=== PATIENT | female | born 1940 | race Caucasian/White ===

== ENCOUNTER → 2018-04-28 13:41 | Outpatient (CLI) | payer MEDICARE, MEDICAID, SELFPAY ==
--- NOTE | 2018-04-28 13:53 | XR_ITS ---
XR shoulder RT min 2V HISTORY: ITS.REASON: RT SHOULDER PAIN ORDERING PHYSICIAN: Alise Salazar PATIENT AGE: 77 years Comparison: None FINDINGS: There are mild osteoarthritic changes of the glenohumeral joint and acromioclavicular joint. No fracture or dislocation. No significant subacromial stenosis. There is a small bone island in the glenoid. 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
--- NOTE | 2018-04-28 13:53 | XR_ITS ---
XR hip LT 2-3V w/pelvis HISTORY: ITS.REASON: LEFT HIP PAIN ORDERING PHYSICIAN: Alise Salazar PATIENT AGE: 77 years COMPARISON: None FINDINGS: There are moderate bilateral osteoarthritic changes of the hips slightly worse on the left. No fracture or dislocation. No lytic or blastic change. 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
--- NOTE | 2018-04-28 13:53 | XR_ITS ---
XR shoulder LT min 2V HISTORY: ITS.REASON: LEFT SHOULDER PAIN ORDERING PHYSICIAN: Alise Salazar PATIENT AGE: 77 years Comparison: 05/23/2017 FINDINGS: There are mild osteoarthritic changes of the glenohumeral joint. No fracture or dislocation. No lytic or blastic change. No significant subacromial stenosis. IMPRESSION: Mild osteoarthritis of the glenohumeral joint is slightly worse when compared to 05/23/2017
--- NOTE | 2018-04-28 13:53 | XR_ITS ---
XR knee RT 3V HISTORY: ITS.REASON: SWELLING OF RT KNEE JOINT ORDERING PHYSICIAN: Alise Salazar PATIENT AGE: 77 years COMPARISON: None FINDINGS: Tricompartmental osteoarthritic changes are present mild/moderate in nature with decrease in the joint space and osteophyte formation. There is a calcific density along the central aspect of the lateral compartment and may be due to a loose intra-articular body or a spur from the femoral condyle. There is increased density in the suprapatellar region consistent with a knee joint effusion. No fracture or dislocation lytic or blastic change evident. IMPRESSION: [id number] osteoarthritis with knee joint effusion and possible loose body along the lateral compartment
== END ==
PROVIDERS: PCP Nurse Practitioner Family; Visit Provider Nurse Practitioner Family
DX: M25.552 Pain in left hip (principal); M25.511 Pain in right shoulder; M25.512 Pain in left shoulder; M25.461 Effusion, right knee
CPT/HCPCS: 73030; 73502; 73562

== ENCOUNTER → 2018-05-08 14:34 | Outpatient (CLI) | payer MEDICARE, MEDICAID, SELFPAY ==
--- NOTE | 2018-05-08 14:46 | MR_ITS ---
MR knee RT wo con Ordering Physician: Alise Salazar Patient Age: 77 years: Female HISTORY: ITS.REASON: LOOSE BODY IN KNEE Right knee pain. Loose body knee. Fell 2 weeks ago on knee with swelling at and throughout knee. Knee pain with bending and extending. TECHNIQUE: Multiplanar multisequence imaging 1.5T MR. COMPARISON :Plain films of the right knee 04/28/2018 FINDINGS Large joint effusion with tricompartmental Arthritic changes, seen throughout this knee. .. Moderate Tricompartmental marginal osteophytes, most evident about the lateral compartment. Chondral thinning and scuffing throughout-tricompartmental.. Also note edema throughout the soft tissues surrounding the knee. No fracture. No significant bone contusion. . LATERAL COMPARTMENT: Marginal osteophytes most evident laterally at the femoral condyle. . Mild joint space narrowing.Irregular chondral signal likely reflects areas of chondral thinning,, scuffing with what appear to be some chondral fissures and irregularity on coronal view There is a focal 5 mm x 8 mm AP x 2 mm height 'wart like' osseous protuberance from the posterior weightbearing aspect of the lateral femoral condyle. It appears to be osseous protuberance from the bone rather than a loose body..-This feature evident on recent plain film as well . The lateral meniscus is surprisingly intact. There may be some mild fraying at the free margin the posterior horn just beneath the small osseous protuberance described above. Minimal hypertrophic ridging extending laterally from from the region of the tibial spines noted at anterior aspect of the lateral tibial plateau. This feature begins near the tibial spine region on coronal image 14 & & and likely continues lateral as it subtle ridge along anterior tibial plateau, just beneath the anterior meniscus (sagittal image 7). Initially question if this could be a small thin meniscal fragment just beneath the anterior horn on the sagittal images.-Although this is a possibility but I tend to favor it is is related to the mild hypertrophic ridging feature and low signal from cortex... MEDIAL COMPARTMENT There is chondral scuffing and thinning at the medial femoral condyle.. Slight narrowing of medial compartment joint space Developing medial marginal osteophytes,. There is medial displacement of the body of the medial meniscus accompanied these marginal osteophytes medially. I suspect there is some fraying at the free margin of the anterior horn and body of medial meniscus. Overall the medial meniscus appears to be of some decreased volume which may reflect some degenerative changes. PATELLOFEMORAL JOINT. Subtle lateral tilt of patella. Appears to be chondral thinning and chondral loss along the posterior aspect of patella Large joint effusion is most evident through this suprapatellar region. Patella itself is intact. The patella tendon appears to be intact upper normal signal near its patellar insertion. Quadriceps tendon intact. Mild fluid signal overlying patellar tendon. Ligaments: . ACL thin but I believe intact. PCL generous thickness upper normal signal superiorly but I believe intact MCL and lateral collateral ligament intact. IMPRESSION: ...... 1. Large joint effusion. No fracture nor bone contusion Also generous Edema also seen in soft tissues surrounding knee joint 2. Tricompartmental arthritic changes at knee. Moderate Tricompartmental osteophytes. Chondral thinning, scuffing and irregularities all compartments ... Lateral compartment demonstrates chondral thinning scuffing and irregularities most evident at the lateral femoral condyle . Note focal wartlike osseous protuberance at extending from the the lateral femoral condyle into the joint space... ... Medial
== END ==
PROVIDERS: Family Provider Nurse Practitioner Family; PCP Nurse Practitioner Family; Visit Provider Nurse Practitioner Family
DX: M23.41 Loose body in knee, right knee (principal)
CPT/HCPCS: 73721

== ENCOUNTER → 2021-02-10 13:56 | Outpatient (CLI) | payer MEDICARE, SELFPAY ==
[2021-02-10 14:17] LABS: Chloride 94 mmol/L (98-107); Potassium 3.7 mmoL/L (3.5-5.1); Sodium 132 mmol/L (136-145)
[2021-02-10 14:19] LABS: Alanine Aminotransferase 11 U/L (12-78); Aspartate Amino Transferase 20 U/L (14-36); Blood Urea Nitrogen 12 mg/dl (7-17); Estimated Glomerular Filt Rate 97 ml/min (>60); GFR (African American) 117 ML/MIN (>60)
[2021-02-10 14:20] LABS: Albumin Level 4.3 g/dl (3.5-5.0); Albumin/Globulin Ratio 1.6 (1.1-1.8); Alkaline Phosphatase 93 U/L (38-126); Anion Gap 12.7 mEq/L (5-15); Bilirubin,Total 0.6 mg/dl (0.2-1.3); Calcium 9.2 mg/dl (8.4-10.2); Carbon Dioxide 29 mmol/L (22.0-30.0); Chol/HDL Ratio 2.8 (1-3.5); Cholesterol 213 mg/dl (140-200); Globulin 2.7 g/dL (1.3-3.2); Glucose 95 mg/dl (74-100); HDL Cholesterol 75 mg/dl (40-60); Triglycerides 78 mg/dl (30-150); VLDL Cholesterol 16 mg/dL (0-40)
[2021-02-10 14:32] LABS: Basophils % 0.2 % (0.1-2.0); Direct LDL Cholesterol 114.62 mg/dL (100-129); Eosinophils % 0.3 % (0.1-12.0); Hematocrit 41.8 % (37.0-47.0); Hemoglobin 13.6 g/dL (12.2-16.2); Lymphocytes % 8.5 % (10-50); Mean Corpuscular HGB Conc 32.4 g/dL (31.8-35.4); Mean Corpuscular Hemoglobin 27.4 pg (27.0-31.2); Mean Corpuscular Volume 84.5 fl (81-99); Mean Platelet Volume 8.2 fl (7.4-10.4); Monocytes # 0.4 K/mm3 (0.1-1.0); Monocytes % 3.1 % (1.7-9.3); Neutrophils # 10.7 K/mm3 (1.8-7.8); Neutrophils % 87.9 % (37.0-80.0); Platelet Count 258 K/mm3 (142-424); Red Blood Count 4.95 M/mm3 (4.20-5.40); Red Cell Distribution Width 17.9 % (11.5-17.5); White Blood Count 12.2 K/mm3 (4.8-10.8)
[2021-02-10 14:51] LABS: Thyroid Stimulating Hormone 2.25 uIU/mL (0.465-4.68)
[2021-02-10 15:01] LABS: MANUAL DIFFERENTIAL MANUAL DIFFERENTIAL (MANUAL DIFF)
[2021-02-10 16:23] LABS: Erythrocyte Sedimentation Rate 6 mm/hr (0-30)
[2021-02-10 16:29] LABS: Acanthocytes 1+; Eosinophils % 1 % (0-3); Lymphocytes % 6 % (10-50); Monocytes % 4 % (2-9); Neutrophils % 87 % (42-76); Platelet Estimate Normal; Total Cells Counted 100
== END ==
PROVIDERS: Visit Provider Family Medicine
DX: E03.9 Hypothyroidism, unspecified (principal); I21.9 Acute myocardial infarction, unspecified; M06.9 Rheumatoid arthritis, unspecified; F03.90 Unspecified dementia, unspecified severity, without behavioral disturbance, psychotic disturbance, mood disturbance, and anxiety
CPT/HCPCS: 80053; 80061; 84436; 84443; 85007; 85025; 85651

== ENCOUNTER → 2021-07-28 09:56 | Outpatient (CLI) | payer MEDICARE, SELFPAY ==
--- NOTE | 2021-07-28 10:02 | XR_ITS ---
PROCEDURE: XR HIP LT 2-3V W/PELVIS CLINICAL INDICATION: pain COMPARISON: CR HIPCMLT XR hip LT 2-3V w/pelvis from 04/28/2018 FINDINGS: There are moderate to severe osteoarthritic changes of the left hip with loss of joint space superiorly and osteophyte formation with osteosclerosis. The osteoarthritis has progressed compared to the previous exam. IMPRESSION: Moderate to severe osteoarthritic changes of the left hip which has progressed since 04/28/2018 Dictated by: Jose Villalobos MD 07/28/2021 17:08 Jose Villalobos MD in [place] 07/28/2021 17:08
--- NOTE | 2021-07-28 10:03 | XR_ITS ---
PROCEDURE: XR HIP RT 2-3V W/PELVIS CLINICAL INDICATION: HIP PAIN COMPARISON: CR HIPCMLT XR hip LT 2-3V w/pelvis from 04/28/2018 CR XR HIP LT 2-3V W/PELVIS from 07/28/2021 FINDINGS: No obvious fracture or dislocation. No lytic or blastic changes. There are moderate osteoarthritic changes of the right hip with decrease of joint space medially and osteosclerosis of the acetabulum. There is a ill-defined lucency involving the medial aspect of the acetabulum possibly due to a Mach line created by acetabular osteophyte formation. An old fracture could have a similar appearance. IMPRESSION: Moderate osteoarthritic changes of the right hip. Prominent lucency of the medial wall the acetabulum possibly due to Mach line from acetabular osteophyte versus an old fracture. Dictated by: Jose Villalobos MD 07/28/2021 17:07 Jose Villalobos MD in [facility] 07/28/2021 17:07
== END ==
LOC: RAD 09:59
PROVIDERS: PCP Family Medicine; Visit Provider Family Medicine
DX: M25.552 Pain in left hip (principal); M25.551 Pain in right hip; Z76.0 Encounter for issue of repeat prescription
CPT/HCPCS: 73502

== ENCOUNTER 2021-09-16 15:28 | Emergency (ER) | payer MEDICARE, SELFPAY ==
[2021-09-16 16:06] VITALS: BP 174/75; PULSE 72; RESP 18; TEMP 37; O2SAT 98; BMI 21.9
[2021-09-16 16:13] LABS: UTC Strep Screen (Rapid) Negative (Negative)
--- NOTE | 2021-09-16 17:06 | HMH.EDUTC ---
[facility] [place] Disposition Clinical Impression: Gastroenteritis, Viral syndrome Disposition: Home, Self-Care Condition on Discharge: Good Instructions: Viral Gastroenteritis, DI for Viral Gastroenteritis -- Adult Additional Instructions: Drink plenty of fluids. Take tylenol for pain or fever. Take the medications as directed. Follow up with your regular doctor. GO TO THE ER FOR ANY WORSENING SYMPTOMS Quarantine until you know the results of your covid-19 test. If it is positive, the health department should call you and give you further instructions about your length of Quarantine and other things. Notify your school or workplace of your results and follow their instructions regarding return to work/school. We gave you the supplies and the order to bring a stool sample back and have it analyzed. If your diarrhea continues another 24 hours, please return a sample. Prescriptions: Ondansetron [Zofran 4mg ODT] 4 mg PO Q8HP PRN #12 tab PRN Reason: Nausea Transmission Status: Received by [facility] [id number] Referrals: Cody Portillo MD [Primary Care Provider] - Time of Disposition: 17:28 Medical Decision Making - Medical Records Medical records reviewed: No: I reviewed the patient's medical records. - Alex Inquiry Pt receiving controlled substance: No Vital Signs: 09/16/21 16:06 09/16/21 17:36 Temperature 98.6 F 98.6 F Temperature Source Oral Pulse Rate 72 Pulse Rate [Left] 72 Respiratory Rate 18 18 Blood Pressure 174/75 H Blood Pressure [Right Arm] 174/75 H Blood Pressure Mean [Right Arm] 108 02 Sat by Pulse Oximetry 98 - Lab Data Lab Results 09/16/21 16:05: Strep Scn Rapid Clinic Negative Orders (Tests/Meds): ORDERS Category Date Time Status Covid-19 Nasal PCR ([facility]) Routine Lab 09/16/21 17:34 Received Strep Screen Confirmation Routine Micro 09/16/21 16:05 Received Medical Decision Narrative: She refused a chest x-ray and lab work. She states that she thinks she just has a stomach virus and she doesn't need all of that. [facility] [place] HPI - General Stated complaint: diarrhea Time Seen by Provider: 09/16/21 16:40 Mode of Arrival: Ambulatory Source of Information: Patient Limitations: No Limitations Description of Symptoms (Recalled from Triage Doc. by RN): pt c/o diarrhea and stomach cramps x3 days. HEENT Symptoms (Recalled from RN notes): No Resp Symptoms (Recalled from RN notes): No Skin Symptoms (Recalled from RN notes): No MS Symptoms (Recalled from RN notes): No Functional Status (Recalled from RN notes): na - History of Present Illness Provider Complaint: She c/o 3 days of diarrhea and nausea. She denies vomiting. She denies actual abdominal pain and fever. She has also had a cough and chest congestion. She has not been vaccinated against covid-19. - Related Data Previous Rx's Medication Instructions Recorded levetiracetam 750 mg tablet 750 mg PO BID #180 tab 03/16/21 levothyroxine 50 mcg tablet 50 mcg PO DAILY #90 tab 03/16/21 lisinopril 5 mg tablet 5 mg PO DAILY #90 tab 03/16/21 sertraline 25 mg tablet 25 mg PO DAILY #90 tab 03/16/21 albuterol sulfate 90 mcg/actuation 1 inh INHALATION QID PRN #18 g 06/02/21 aerosol inhaler aspirin 81 mg tablet,delayed 81 mg PO DAILY #90 tab 07/23/21 release metoprolol succinate 50 mg 50 mg PO DAILY #90 tab 07/23/21 tablet,extended release 24 hr hydrocodone 7.5 mg-acetaminophen 1 tab PO DAILY PRN #30 tab 09/03/21 325 mg tablet methylprednisolone 4 mg tablets in See Rx Instructions PO PER PKG DIR 09/08/21 a dose pack #21 tab prednisone 10 mg tablet 10 mg PO DAILY #30 tab 09/11/21 Ondansetron [Zofran 4mg ODT] 4 mg PO Q8HP PRN #12 tab 09/16/21 Allergies Allergy/AdvReac Type Severity Reaction Status Date / Time No Known Allergies Allergy Verified 09/03/21 09:48 - Worker's Comp Is this a Worker's Comp case?: No H History - Hepatitis A Screen Drug use history?: No High risk se
--- NOTE | 2021-09-16 17:27 | PC.NURSE ---
pt refused chest xray.
[2021-09-16 17:36] VITALS: BP 174/75; PULSE 72; RESP 18; TEMP 37
== END 2021-09-16 17:46 | disposition home or self-care (01) ==
PROVIDERS: Emergency Provider Nurse Practitioner Family; PCP Family Medicine
DX: K52.9 Noninfective gastroenteritis and colitis, unspecified (principal); I50.9 Heart failure, unspecified; Z20.822 Contact with and (suspected) exposure to COVID-19
CPT/HCPCS: G0463; 87880; 99202; C9803; U0003; U0005

== ENCOUNTER 2022-04-27 20:03 | Inpatient (IN) | payer MEDICARE, SELFPAY ==
[2022-04-27] VITALS (17 sets, daily range): BP systolic 74–149; BP diastolic 41–68; PULSE 61–95; RESP 16–24; TEMP 39.3; O2SAT 90–97; BMI 21.9
--- NOTE | 2022-04-27 19:47 | ECG_ITS ---
APPROVED REPORT Exam: Resting ECG HR:84 bpm ECG Measurements Heart Rate 84 AXES OR 156 P 72 QRSd 103 QRS 74 QT 403 T 69 QTc 443 Conclusion SINUS RHYTHM WITH OCCASIONAL SUPRAVENTRICULAR PREMATURE COMPLEXES Biatrial abnormality Old inferior Q waves noted Nonspecific ST/T wave changes-ischemia versus electrolyte imbalance ABNORMAL ECG INTERPRETATION BASED ON A DEFAULT AGE OF 42 YEARS UNCONFIRMED REPORT Electronically signed by : José Corrigan MD 04/29/2022 17:45:09
[2022-04-27 20:20] LABS: ABG Base Excess 1.5 mmol/L (-2.4-2.3); ABG HCO3 24.8 mmhg (22.0-26.0); ABG Oxygen Saturation 100 % (90-100); ABG PCO2 33.3 mmhg (35.0-45.0); ABG PH 7.49 mmol/L (7.35-7.45); ABG PO2 267.1 mmhg (80-100); ABG TCO2 25.8 mmhg (23-27); Allen's Test Acceptable; Oxygen 100 %; Source Right Radial
--- NOTE | 2022-04-27 20:25 | PC.NURSE ---
@ 2024 Dr. Dyson requested pt be placed on 2LPM NC from [facility]
--- NOTE | 2022-04-27 20:25 | XR_ITS ---
PROCEDURE INFORMATION: Exam: XR Chest Exam date and time: 04/27/2022 8:35 PM Age: 81 years old Clinical indication: Cough; Additional info: Cough ) TECHNIQUE: Imaging protocol: Radiologic exam of the chest. Views: 1 view. COMPARISON: CR SHOULDCMLT XR shoulder LT min 2V 04/28/2018 1:58 PM FINDINGS: Lungs: Pulmonary hyperinflation. Wedge-shaped opacity within peripheral mid right lung. Pleural spaces: No pneumothorax. Heart/Mediastinum: Prominent cardiac silhouette. Vasculature: Aortic knob calcifications. Bones/joints: Degenerative changes of the shoulders. IMPRESSION: Wedge-shaped opacity within peripheral mid right lung which would be compatible with pneumonia however follow-up to radiographic clearance is recommended.
--- NOTE | 2022-04-27 20:25 | PC.NURSE ---
Dr. Dyson aware that pt meets severe sepsis with organ dysfunction with temp, HR, and SBP < 90 with documented pneumonia on cxr.
--- NOTE | 2022-04-27 20:30 | HMH.EDWEAK ---
ED Disposition Clinical Impression: COVID-19, SIRS (systemic inflammatory response syndrome), Hypokalemia, Seizure disorder CAP (community acquired pneumonia) Qualifiers: Laterality: right Lung location: unspecified part of lung Qualified Code(s): J18.9 - Pneumonia, unspecified organism Hypothyroidism Qualifiers: Hypothyroidism type: acquired Qualified Code(s): E03.9 - Hypothyroidism, unspecified Disposition: Admitted As Inpatient Condition on Discharge: Fair Referrals: Provider,Referral, [Referring] - - Critical Care Critical Care Time: No Attestation: On 04/27/22, the high probability of a clinically significant, sudden or life threatening deterioration of the following system(s) required my full and direct attention, intervention and personal management. The time I documented below is in addition to time spent performing reported procedures but includes the following listed in this critical care notation. Medical Decision Making - Medical Records Medical records reviewed: Yes: I reviewed the patient's medical records. - Alex Inquiry Pt receiving controlled substance: No Vital Signs: 04/27/22 19:56 Temperature 102.7 F H Temperature Source Rectal Pulse Rate [Right] 95 H Respiratory Rate 16 Blood Pressure [Right Arm] 113/65 Blood Pressure Mean [Right Arm] 81 02 Sat by Pulse Oximetry 95 Oxygen Delivery Method Non-Rebreather Oxygen Flow Rate (LPM) 10 - Lab Data Lab results reviewed: Yes: I reviewed the patient's lab results. Lab Results 04/27/22 20:07: Urine Color Yellow, Urine Appearance Clear, Urine pH 7.0, Ur Specific [place] 1.015, Urine Protein Negative, Urine Glucose (UA) Negative, Urine Ketones Negative, Urine Blood Negative, Urine Nitrate Negative, Urine Bilirubin Negative, Urine Urobilinogen 0.2, Ur Leukocyte Esterase Negative, Urine Bacteria 2+ 04/27/22 20:07: WBC 8.6, RBC 5.46 H, Hgb 15.2, Hct 49.8 H, MCV 91.2, MCH 27.9, MCHC 30.6 L, RDW 15.2, Plt Count 155, MPV 8.9, Neut % (Auto) 88.1 H, Lymph % (Auto) 8.4 L, Bowie % (Auto) 2.8, Eos % (Auto) 0.2, Baso % (Auto) 0.5, Neut # (Auto) 7.6, Lymph # (Auto) 0.7, Bowie # (Auto) 0.2, Eos # (Auto) 0.0, Baso # (Auto) 0.0, ESR 2 04/27/22 20:07: Sodium 129 L, Potassium 2.7 L*, Chloride 93 L, Carbon Dioxide 28, Anion Gap 10.7, BUN 14, Creatinine 0.90, Estimated Creat Clear 39, Estimated GFR 60, Est GFR ( Amer) 73, Glucose 117 H, Calcium 8.4, Total Bilirubin 1.0, AST 27, ALT 23, Alkaline Phosphatase 85, Troponin I 0.02, C-Reactive Protein 20.1 H, Total Protein 6.4, Albumin 3.8, Globulin 2.6, Albumin/Globulin Ratio 1.5, Amylase 50, Lipase 30, Procalcitonin 1.15 04/27/22 20:07: Lactate 1.8 04/27/22 20:18: Specimen Source Right radial, O2 % 100, ABG pH 7.49 H, ABG pCO2 33.3 L, ABG pO2 267.1 H, ABG HCO3 24.8, ABG Total CO2 25.8, ABG O2 Saturation 100, ABG Base Excess 1.5, Jose Test Acceptable 04/27/22 20:34: SARS-CoV-2 (PCR) Detected A, Influenza A Untype (PCR) Not detected, Influenza Type B (PCR) Not detected Result diagrams: 04/27/22 20:07 04/27/22 20:07 Orders (Tests/Meds): ED MEDICATIONS Generic Name Dose Route Start Last Admin Trade Name Freq PRN Reason Stop Dose Admin Sodium Chloride 1,000 mls @ 999 mls/hr 04/27/22 20:30 04/27/22 20:21 Sod Chlor 0.9% 1000ml Bag IV 04/27/22 21:30 999 mls/hr .Q1H1M DARINEL Administration Discontinued Medications Generic Name Dose Route Start Last Admin Trade Name Freq PRN Reason Stop Dose Admin Acetaminophen 1,000 mg 04/27/22 20:35 04/27/22 20:37 Acetaminophen 500mg Tab PO 04/27/22 20:36 1,000 mg ONCE ONE Administration ORDERS Category Date Time Status Complete Blood Count Auto Diff Stat Lab 04/27/22 20:07 Results Erythrocyte Sedimentation Rate Stat Lab 04/27/22 20:07 Results Troponin I Q3H Lab 04/27/22 23:30 Ordered Troponin I Q3H Lab 04/28/22 02:30 Ordered Blood Culture Stat Micro 04/27/22 20:07 Received Urine Culture Stat Micro 04/27/22 20:07 Received Arterial
[2022-04-27 20:35] LABS: Microscopic, Urine URINE MICROSCOPIC (MICROSCOPIC)
[2022-04-27 20:41] LABS: Basophils % 0.5 % (0.1-2.0); Eosinophils % 0.2 % (0.1-12.0); Hematocrit 49.8 % (37.0-47.0); Hemoglobin 15.2 g/dL (12.2-16.2); Lymphocytes # 0.7 K/mm3 (0.7-4.5); Lymphocytes % 8.4 % (10-50); Mean Corpuscular HGB Conc 30.6 g/dL (31.8-35.4); Mean Corpuscular Hemoglobin 27.9 pg (27.0-31.2); Mean Corpuscular Volume 91.2 fl (81-99); Mean Platelet Volume 8.9 fl (7.4-10.4); Monocytes # 0.2 K/mm3 (0.1-1.0); Monocytes % 2.8 % (1.7-9.3); Neutrophils # 7.6 K/mm3 (1.8-7.8); Neutrophils % 88.1 % (37.0-80.0); Platelet Count 155 K/mm3 (142-424); Red Blood Count 5.46 M/mm3 (4.20-5.40); Red Cell Distribution Width 15.2 % (11.5-17.5); White Blood Count 8.6 K/mm3 (4.8-10.8)
[2022-04-27 20:41] LABS: Influenza A, PCR Not Detected (NotDetected); Influenza B, PCR Not Detected (NotDetected)
[2022-04-27 20:49] LABS: MANUAL DIFFERENTIAL MANUAL DIFFERENTIAL (MANUAL DIFF)
[2022-04-27 20:52] LABS: Lactic Acid 1.8 mmol/L (0.7-2.1)
[2022-04-27 20:54] LABS: Alanine Aminotransferase 23 U/L (12-78); Albumin Level 3.8 g/dl (3.5-5.0); Albumin/Globulin Ratio 1.5 (1.1-1.8); Alkaline Phosphatase 85 U/L (38-126); Amylase 50 U/L (30-110); Anion Gap 10.7 mEq/L (5-15); Aspartate Amino Transferase 27 U/L (14-36); Blood Urea Nitrogen 14 mg/dl (7-17); Calcium 8.4 mg/dl (8.4-10.2); Carbon Dioxide 28 mmol/L (22.0-30.0); Chloride 93 mmol/L (98-107); Creatinine Clearance Estimated 39 mL/min (50-200); Estimated Glomerular Filt Rate 60 ml/min (>60); GFR (African American) 73 ML/MIN (>60); Globulin 2.6 g/dL (1.3-3.2); Glucose 117 mg/dl (74-100); Lipase 30 U/L (23-300); Sodium 129 mmol/L (136-145); Total Protein,Serum 6.4 g/dl (6.3-8.2)
[2022-04-27 21:00] LABS: C-Reactive Protein 20.1 mg/L (0-4)
[2022-04-27 21:01] LABS: Appearance,Urine CLEAR (Clear); Bilirubin,Urine Negative (Negative); Blood, Urine Negative (Negative); Color,Urine YELLOW (Yellow); Glucose,Urine (UA) Negative (Negative); Ketones,Urine Negative (Negative); Leukocyte Esterase,Urine Negative (Negative); Nitrate,Urine Negative (Negative); Protein,Urine Negative (Negative); Specific Gravity, Urine 1.015 (1.005-1.030); Urobilinogen,Urine 0.2 EU/dl (0.2)
[2022-04-27 21:07] LABS: Coronavirus 19, PCR Detected (NotDetected)
[2022-04-27 21:10] LABS: Erythrocyte Sedimentation Rate 2 mm/hr (0-30); Potassium 2.7 mmoL/L (3.5-5.1); Troponin I 0.02 ng/ml (0.00-0.034)
--- NOTE | 2022-04-27 21:10 | PC.NURSE ---
Dr. Dyson notified of critical potassium, no new orders at this time.
[2022-04-27 21:15] LABS: Procalcitonin 1.15 ng/mL (0.0-2.0)
[2022-04-27 21:28] LABS: Bacteria,Urine 2+ /lpf
[2022-04-27 21:39] LABS: Lymphocytes % 11 % (10-50); Monocytes % 3 % (2-9); Neutrophils % 86 % (42-76); Platelet Estimate Normal; Total Cells Counted 100
--- NOTE | 2022-04-27 21:45 | PC.NURSE ---
Dr. Dyson made aware pt was less responsive, only responding to pain at this time. New order for repeat ABG, EKG, and Vapotherm.
--- NOTE | 2022-04-27 22:18 | ECG_ITS ---
APPROVED REPORT Exam: Resting ECG HR:79 bpm ECG Measurements Heart Rate 79 AXES MI 152 P 64 QRSd 106 QRS 75 QT 412 T 15 QTc 446 Conclusion SINUS RHYTHM Left atrial abnormality. Old inferior Q waves noted ABNORMAL ECG UNCONFIRMED REPORT Electronically signed by : José Corrigan MD 04/29/2022 17:42:49
--- NOTE | 2022-04-27 23:00 | PC.NURSE ---
Dr. Dyson made aware that pt's sepsis bolus was completed and she is having continued hypotension. New order to start Levophed gtt.
--- NOTE | 2022-04-27 23:30 | PC.NURSE ---
Patient admitted to service of Dr. Portillo with dx of septic shock, CAP, and covid positive. Patient to be boarded in ER at this time.
[2022-04-27 23:59] LABS: Troponin I 0.04 ng/ml (0.00-0.034)
[2022-04-28] VITALS (46 sets, daily range): BP systolic 101–148; BP diastolic 55–78; PULSE 51–84; RESP 13–27; TEMP 36.4–37.6; O2SAT 86–99; BMI 23.5
--- NOTE | 2022-04-28 00:03 | PC.NURSE ---
Titrated Levophed to 8mcg/min d/t BP 131/70
--- NOTE | 2022-04-28 00:04 | PC.NURSE ---
Respiratory increased vapotherm to 20L & 50%
--- NOTE | 2022-04-28 01:51 | HMH.SEPSISRE ---
[facility] Tissue Perfusion Eval Sepsis Re-Evaluation Performed: Yes Date Performed: 04/28/22 Time Performed: 00:05
[2022-04-28 02:25] LABS: Troponin I 0.02 ng/ml (0.00-0.034)
--- NOTE | 2022-04-28 02:41 | PC.NURSE ---
Pt moved to regular hospital bed and tolerated well. Repositioned to R side. 1,200ml drained from jensen bag at this time.
--- NOTE | 2022-04-28 03:23 | PC.NURSE ---
Addendum entered by Karolyn Olsen RN 04/28/22 03:41: this occurred @ 0300 04/28/22 Original Note: Levophed titrated down to 6mcg/min
--- NOTE | 2022-04-28 03:41 | PC.NURSE ---
Levophed titrated to 4mcg/min
--- NOTE | 2022-04-28 04:10 | PC.NURSE ---
Levophed titrated to 3mcg/min
--- NOTE | 2022-04-28 05:10 | PC.NURSE ---
Levophed titrated to 2mcg/min
--- NOTE | 2022-04-28 05:40 | PC.NURSE ---
Levophed titrated to 1mcg/min
--- NOTE | 2022-04-28 06:00 | PC.NURSE ---
Patient VSS, Levophed drip stopped at 0600, Spoke with Dr. Dyson regarding Step down status, if Vital signs remains stable may transfer patient to regular med surg bed.
--- NOTE | 2022-04-28 06:00 | PC.NURSE ---
Levophed drip stopped at this time
[2022-04-28 06:23] LABS: Basophils # 0.1 K/mm3 (0-0.2); Basophils % 0.3 % (0.1-2.0); Eosinophils # 0.1 K/mm3 (0.0-0.4); Eosinophils % 0.6 % (0.1-12.0); Hematocrit 48.7 % (37.0-47.0); Hemoglobin 14.5 g/dL (12.2-16.2); Lymphocytes # 0.3 K/mm3 (0.7-4.5); Lymphocytes % 2.2 % (10-50); Mean Corpuscular HGB Conc 29.8 g/dL (31.8-35.4); Mean Corpuscular Hemoglobin 27.4 pg (27.0-31.2); Mean Corpuscular Volume 91.9 fl (81-99); Mean Platelet Volume 8.7 fl (7.4-10.4); Monocytes # 0.4 K/mm3 (0.1-1.0); Monocytes % 2.4 % (1.7-9.3); Neutrophils # 13.9 K/mm3 (1.8-7.8); Neutrophils % 94.5 % (37.0-80.0); Platelet Count 143 K/mm3 (142-424); Red Blood Count 5.29 M/mm3 (4.20-5.40); Red Cell Distribution Width 15.1 % (11.5-17.5); White Blood Count 14.7 K/mm3 (4.8-10.8)
[2022-04-28 06:26] LABS: MANUAL DIFFERENTIAL MANUAL DIFFERENTIAL (MANUAL DIFF)
[2022-04-28 06:27] LABS: Anion Gap 11.1 mEq/L (5-15); Blood Urea Nitrogen 13 mg/dl (7-17); Calcium 7.4 mg/dl (8.4-10.2); Carbon Dioxide 22 mmol/L (22.0-30.0); Chloride 101 mmol/L (98-107); Creatinine Clearance Estimated 39 mL/min (50-200); Estimated Glomerular Filt Rate 69 ml/min (>60); GFR (African American) 84 ML/MIN (>60); Glucose 189 mg/dl (74-100); Potassium 3.1 mmoL/L (3.5-5.1); Sodium 131 mmol/L (136-145)
--- NOTE | 2022-04-28 06:57 | PC.NURSE ---
RT at bedside for ECHO
--- NOTE | 2022-04-28 07:00 | PC.NURSE ---
per report from night guard staff jonathan henao pt needs to be monitored in ER until at least 0800 to monitor BP before going to assigned room on second floor. Pt levophed turned off at 0600. v/s cycling q15 minutes on pt. will continue to monitor.
--- NOTE | 2022-04-28 07:11 | HMH.PHAINT ---
MEDICATION RECONCILIATION COMPLETED ON PATIENT USING EXTERNAL FILL HISTORY FROM PHARMACY. -BIANCA SIMENTAL, JUSTICED
[2022-04-28 07:19] LABS: ABG Base Excess -13.3 mmol/L (-2.4-2.3); ABG HCO3 13.9 mmhg (22.0-26.0); ABG Oxygen Saturation 97 % (90-100); ABG PCO2 32.2 mmhg (35.0-45.0); ABG PH 7.25 mmol/L (7.35-7.45); ABG PO2 100.4 mmhg (80-100); ABG TCO2 14.9 mmhg (23-27)
[2022-04-28 07:20] LABS: Allen's Test acceptable; Oxygen 50% %
--- NOTE | 2022-04-28 07:24 | PC.NURSE ---
vascular lab staff gave ER verbal report on echo at this time.
--- NOTE | 2022-04-28 07:27 | PC.NURSE ---
called RT to check vapotherm alarm
[2022-04-28 07:37] LABS: Lymphocytes % 9 % (10-50); Monocytes % 2 % (2-9); Neutrophils % 89 % (42-76); Platelet Estimate Normal; RBC Morphology Normal; Total Cells Counted 100
--- NOTE | 2022-04-28 07:47 | PC.NURSE ---
rangel ferris at BS
--- NOTE | 2022-04-28 08:11 | PC.NURSE ---
attempted to call report to second floor, no answer at primary nurses phone, cash management clerk states she will have nurse call me back from report.
[2022-04-28 08:12] LABS: NT Pro Brain Natriuretic Pep. 6660 pg/mL (0-450)
--- NOTE | 2022-04-28 08:15 | HMH.HP ---
*Admission Date: 04/28/22 *Chief complaint: Generalized Weakness *History of present illness: 81-year-old female patient presented to the [facility] emergency department via EMS for family reports of weakness and temperature for 2 days. EMS reports patient became lethargic and drowsy during transport and needed nonrebreather in route. In the emergency department patient required Vapotherm Due to hypotension in the emergency department she required several hours of Levophed IV Heart rate 95, temperature 102.7 rectally, blood pressure 77/46 requiring sepsis bolus, community-acquired pneumonia [facility] History I have reviewed the patient's past medical history: Yes Medical History: Reports:: Congestive Heart Failure *Have you ever received a pneumonia vaccine?: No *Have you received a flu vaccine this season?: No Other Medical History: Reports: Arthritis Other Surgeries: Yes: Cardiac Catheterization Amputation: No Fractures: No - *Social History Smoking Status: Current every day smoker Tobacco Type: cigarettes # Packs/Day (cigarettes): 1 Alcohol Intake: never Substance Use Type: denies use Last Used Substance: unknown *Occupational Status:: retired Housing: house *Travel in the last 8 weeks: None Family Hx:: Cancer Review of Systems - Review of Systems Review of systems:: pertinent systems reviewed and negative unless documented below Patient unable to answer any questions, she states she woke up and was unsure where she was. When asked what happened to bring her to the hospital, she does not remember anything - *Neurologic Reports weakness, Denies localized weakness, Denies seizure-like activity Meds Home Medications Medication Instructions Recorded Confirmed Type Levothyroxine Sodium [Synthroid 50 mcg PO DAILY 04/27/22 04/27/22 History 50mcg (0.05mg) tab] Metoprolol Succinate [Metoprolol 50 mg PO DAILY 04/27/22 04/27/22 History Succinate 50mg Tablet*] Sertraline HCl [Zoloft] 25 mg PO DAILY 04/27/22 04/27/22 History levETIRAcetam [Levetiracetam] 750 mg PO BID 04/27/22 04/27/22 History lisinopriL [Lisinopril] 5 mg PO DAILY 04/27/22 04/27/22 History predniSONE [Deltasone 10mg tablet] 10 mg PO DAILY 04/27/22 04/27/22 History Albuterol Sulfate [Albuterol 1 puff IH QIDP PRN 04/28/22 04/28/22 History Sulfate Hfa] Hydrocodone/Acetaminophen 1 tab PO DAILYP PRN 04/28/22 04/28/22 History [Hydrocodone-Acetamin 7.5-325] Allergies Allergy/AdvReac Type Severity Reaction Status Date / Time No Known Allergies Allergy Verified 01/15/22 11:02 Exam Vital signs and Labs for Last 24 Hours: Temp Pulse Resp BP Pulse Ox 99.6 F 57 L 16 122/70 95 04/28/22 03:00 04/28/22 08:00 04/28/22 08:00 04/28/22 08:00 04/28/22 08:00 Laboratory Results - last 24 hr 04/27/22 20:07: Urine Color Yellow, Urine Appearance Clear, Urine pH 7.0, Ur Specific [place] 1.015, Urine Protein Negative, Urine Glucose (UA) Negative, Urine Ketones Negative, Urine Blood Negative, Urine Nitrate Negative, Urine Bilirubin Negative, Urine Urobilinogen 0.2, Ur Leukocyte Esterase Negative, Urine Bacteria 2+ 04/27/22 20:07: WBC 8.6, RBC 5.46 H, Hgb 15.2, Hct 49.8 H, MCV 91.2, MCH 27.9, MCHC 30.6 L, RDW 15.2, Plt Count 155, MPV 8.9, Neut % (Auto) 88.1 H, Lymph % (Auto) 8.4 L, [place] % (Auto) 2.8, Eos % (Auto) 0.2, Baso % (Auto) 0.5, Neut # (Auto) 7.6, Lymph # (Auto) 0.7, [place] # (Auto) 0.2, Eos # (Auto) 0.0, Baso # (Auto) 0.0, Total Counted 100, Neutrophils % (Manual) 86 H, Lymphocytes % (Manual) 11, Monocytes % (Manual) 3, Platelet Estimate Normal, RBC Morphology Not Reportable, ESR 2 04/27/22 20:07: Sodium 129 L, Potassium 2.7 L*, Chloride 93 L, Carbon Dioxide 28, Anion Gap 10.7, BUN 14, Creatinine 0.90, Estimated Creat Clear 39, Estimated GFR 60, Est GFR ( Amer) 73, Glucose 117 H, Calcium 8.4, Total Bilirubin 1.0, AST 27, ALT 23, Alkaline Phosphatase 85, Troponin I 0.02, C-Reactive Protein 20.1 H, Total Protein 6
--- NOTE | 2022-04-28 08:31 | XR_ITS ---
FINAL REPORT CLINICAL HISTORY: sob COMPARISON: 04/27/2022 FINDINGS: SINGLE-VIEW CHEST The heart size is normal. The mediastinum is normal. There is a persistent right upper lobe opacity consistent with pneumonia. There is mild left base atelectasis or pneumonia. There is no pneumothorax. IMPRESSION: Right upper lobe pneumonia. Left base atelectasis or pneumonia. No significant change from previous. Reviewed, Interpreted and Dictated by Chad Myers III, MD Transcribed by Francine Hyman Authenticated and [facility]
--- NOTE | 2022-04-28 08:36 | PC.NURSE ---
report called to vaughn rubio rn on second floor at this time.
--- NOTE | 2022-04-28 08:39 | PC.NURSE ---
Verified w/ED staff that patient is no longer on a levophed drip and is admitting to med surg, not sd
--- NOTE | 2022-04-28 08:58 | PC.NURSE ---
rad at bedside for portable XR
--- NOTE | 2022-04-28 09:07 | PC.NURSE ---
0830- REPORT RECEIVED FROM KRISTA SPAULDING IN ED DEPARTMENT. PER DR ROSSI PT DOES NOT NEED TO TRANSFER TO STEP DOWN BED, LEVO GTT WAS D/C AT 0600 AND PT HAS REMAINED NORMOTENSIVE.
--- NOTE | 2022-04-28 09:33 | PC.NURSE ---
RESP CARE NOTE: Unable to induce sputum specimen due to CDC guidelines. Specimen cup at bedside and instruction given for obtaining any expectorated sputum. Patient also instructed to notify staff if specimen is obtained.
[2022-04-28 09:54] LABS: ABG Base Excess -3.8 mmol/L (-2.4-2.3); ABG HCO3 20.1 mmhg (22.0-26.0); ABG Oxygen Saturation 95 % (90-100); ABG PCO2 29.1 mmhg (35.0-45.0); ABG PH 7.46 mmol/L (7.35-7.45); ABG PO2 70.5 mmhg (80-100)
[2022-04-28 09:57] LABS: Oxygen 40% %
[2022-04-28 09:58] LABS: Allen's Test acceptable
--- NOTE | 2022-04-28 10:22 | HMH.CNCARD ---
History of Present Illness Consult date: 04/28/22 Requesting physician: Cody Portillo Consult reason: shortness of breath Chief complaint: COVID, Pneumonia, Abnormal EKG Additional Medical History:: 1. CAD A. Patient thinks she had stents placed in [place] many years ago. 2. Lance historian A. CT of head, 05/09/2020, no acute intracranial process. 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 Mild periventricular and subcortical white matter changes compatible with chronic small vessel ischemia. 3. Hypertension 4. Pneumonia with positive COVID PCR, 04/2022 requiring hospitalization with sepsis protocol 5. Hypothyroidism, on replacement therapy 6. SHAMAR A. Bilateral ICA stenosis of 1-39%, 10/02/2020 History of present illness: 81-year-old white female presented to the emergency department for evaluation of several days history of increasing fatigue, cough and shortness of breath along with fever and chills. Found to have pneumonia with positive COVID PCR and was admitted. Treated per sepsis protocol including IV fluids. Requiring supplemental oxygen by Vapotherm 20 L/min and Levophed briefly for blood pressure support. Cardiology consulted due to abnormal EKG suggestive of ischemia and mild elevation of troponin #2 out of 3 total (troponins 1 and 3 were both normal). Patient does relate a remote history of coronary disease with possible stenting in the distant past. Echocardiogram this morning with preliminary reading showing preserved ejection fraction. Lance walker. [facility] History Medical History: Reports:: Congestive Heart Failure *Have you ever received a pneumonia vaccine?: No *Have you received a flu vaccine this season?: No Other Medical History: Reports: Arthritis Other Surgeries: Yes: Cardiac Catheterization Amputation: No Fractures: No - *Social History Smoking Status: Current every day smoker Tobacco Type: cigarettes # Packs/Day (cigarettes): 1 Alcohol Intake: never Substance Use Type: denies use *Occupational Status:: retired Housing: house *Travel in the last 8 weeks: Inside the [place] Family Hx:: Cancer Meds Home Medications Medication Instructions Recorded Confirmed Type Levothyroxine Sodium [Synthroid 50 mcg PO DAILY 04/27/22 04/27/22 History 50mcg (0.05mg) tab] Metoprolol Succinate [Metoprolol 50 mg PO DAILY 04/27/22 04/27/22 History Succinate 50mg Tablet*] Sertraline HCl [Zoloft] 25 mg PO DAILY 04/27/22 04/27/22 History levETIRAcetam [Levetiracetam] 750 mg PO BID 04/27/22 04/27/22 History lisinopriL [Lisinopril] 5 mg PO DAILY 04/27/22 04/27/22 History predniSONE [Deltasone 10mg tablet] 10 mg PO DAILY 04/27/22 04/27/22 History Albuterol Sulfate [Albuterol 1 puff IH QIDP PRN 04/28/22 04/28/22 History Sulfate Hfa] Hydrocodone/Acetaminophen 1 tab PO DAILYP PRN 04/28/22 04/28/22 History [Hydrocodone-Acetamin 7.5-325] Allergies Allergy/AdvReac Type Severity Reaction Status Date / Time No Known Allergies Allergy Verified 01/15/22 11:02 Exam Vital signs and Labs for Last 24 Hours: Temp Pulse Resp BP Pulse Ox 97.5 F L 74 18 117/71 92 L 04/28/22 09:25 04/28/22 09:53 04/28/22 09:25 04/28/22 09:25 04/28/22 09:53 Laboratory Results - last 24 hr 04/27/22 20:07: Urine Color Yellow, Urine Appearance Clear, Urine pH 7.0, Ur Specific [place] 1.015, Urine Protein Negative, Urine Glucose (UA) Negative, Urine Ketones Negative, Urine Blood Negative, Urine Nitrate Negative, Urine Bilirubin Negative, Urine Urobilinogen 0.2, Ur Leukocyte Esterase Negative, Urine Bacteria 2+ 04/27/22 20:07: WBC 8.6, RBC 5.46 H, Hgb 15.2, Hct 49.8 H, MCV 91.2, MCH 27.9, MCHC 30.6 L, RDW 15.2, Plt Count 155, MPV 8.9, Neut % (Auto) 88.1 H, Lymph % (Auto) 8.4 L, [place] % (Auto) 2.8, Eos % (Auto) 0.2, Baso % (Auto) 0.5, Neut # (Auto) 7.6, Lymph # (Auto) 0.7, [place] # (Auto) 0.2, Eos # (Auto) 0.0, Baso # (Auto) 0.0, Total Counted 100, Neutrophils % (Manual) 86 H, Lymphocytes % ([place]
--- NOTE | 2022-04-28 10:23 | HMH.PULMCON ---
*Admission Date: 04/28/22 *Reason for consult:: Acute hypoxic respiratory failure, COVID-19 pneumonia *History of present illness: Patient is a poor historian. Much of the history is obtained from chart review. Ms. Lugo is a 81-year-old prior smoker greater than [id number] smoking presented hospital worsening respiratory status and found to be having COVID-19 pneumonia needing high flow Oxygen supplementation pulmonary was called for further management. Patient denies any hospitalizations since October 2021. [facility] History I have reviewed the patient's past medical history: Yes Medical History: Reports:: Congestive Heart Failure *Have you ever received a pneumonia vaccine?: No *Have you received a flu vaccine this season?: No Other Medical History: Reports: Arthritis Other Surgeries: Yes: Cardiac Catheterization, Other Amputation: No Fractures: No - *Social History Last grade of school completed: Some college Smoking Status: Current every day smoker Tobacco Type: cigarettes # Packs/Day (cigarettes): 1 #Yrs smoked (if former smoker): 30 Alcohol Intake: never Substance Use Type: denies use Last Used Substance: unknown *Occupational Status:: retired Housing: house *Travel in the last 8 weeks: Inside the [facility] Family Hx:: Cancer ROS - Cons Reports anorexia, Reports body ache(s), Reports chills, Reports fatigue, Reports fever(s) - Eyes Reports blurry vision - ENT Denies bleeding gums - Card Reports shortness of breath, Reports shortness of breath with activity - Resp Respiratory: Reports change in phlegm color, Reports chest congestion, Reports excessive phlegm production, Reports cough with sputum production, Reports wheezing - [place] Musculoskeletal: Reports back pain - Psych Denies thoughts of hurting/killing others, Denies thoughts of hurting/killing yourself Meds Home Medications Medication Instructions Recorded Confirmed Type Levothyroxine Sodium [Synthroid 50 mcg PO DAILY 04/27/22 04/27/22 History 50mcg (0.05mg) tab] Metoprolol Succinate [Metoprolol 50 mg PO DAILY 04/27/22 04/27/22 History Succinate 50mg Tablet*] Sertraline HCl [Zoloft] 25 mg PO DAILY 04/27/22 04/27/22 History levETIRAcetam [Levetiracetam] 750 mg PO BID 04/27/22 04/27/22 History lisinopriL [Lisinopril] 5 mg PO DAILY 04/27/22 04/27/22 History predniSONE [Deltasone 10mg tablet] 10 mg PO DAILY 04/27/22 04/27/22 History Albuterol Sulfate [Albuterol 1 puff IH QIDP PRN 04/28/22 04/28/22 History Sulfate Hfa] Hydrocodone/Acetaminophen 1 tab PO DAILYP PRN 04/28/22 04/28/22 History [Hydrocodone-Acetamin 7.5-325] Allergies Allergy/AdvReac Type Severity Reaction Status Date / Time No Known Allergies Allergy Verified 01/15/22 11:02 Exam - Constitutional Constitutional:: Absent: no acute distress, comfortable - HENMT Exam HENMT: Present: normocephalic - Eye Exam Eyes:: Present: normal appearance both eyes and related structures - Neck Exam Neck:: Present: normal visual inspection - Respiratory Exam Respiratory:: Present: able to speak in complete sentences, respiratory distress, wheezing - Cardiovascular Exam Cardiac:: Present: S1, S2 - GI Exam GI:: Present: soft - Skin Exam Skin: Present: warm - Neurological Exam Neurological: Present: awake - Extremities Exam Extremities: Present: no cyanosis, no clubbing, no edema - Psychiatric Exam Psychiatric: Present: normal affect Internal Medicine - CN: Reslt - Labs CBC & Chem 7: 04/28/22 06:06 04/28/22 06:06 Labs: Short CBC 04/27/22 04/28/22 Range/Units 20:07 06:06 WBC 8.6 14.7 H D (4.8-10.8) K/mm3 Hgb 15.2 14.5 (12.2-16.2) g/dL Hct 49.8 H 48.7 H (37.0-47.0) % Plt Count 155 143 (142-424) K/mm3 BMP 04/27/22 04/28/22 20:07 06:06 Sodium 129 L 131 L Potassium 2.7 L* 3.1 L Chloride 93 L 101 Carbon Dioxide 28 22 BUN 14 13 Creatinine 0.90 0.80 Glucose 117 H 189 H D Calcium 8.4 7.
--- NOTE | 2022-04-28 16:07 | PC.NURSE ---
PT IS AOX3 WITH SOME EPISODES OF CONFUSION THIS SHIFT. CONTINUES ON VAPOTHERM FOR O2 SUPPORT. DENIES NVD. BOURNE CATH IN PLACE DRAINING CLEAR YELLOW URINE.
--- NOTE | 2022-04-28 22:10 | PC.NURSE ---
pt rounded on at 20:00, pt stated they needed help calling a family member. I got the family member on the phone for the pt. pt did not express any more needs at that time. I will continue to round throughout the night.
[2022-04-29] VITALS (13 sets, daily range): BP systolic 112–149; BP diastolic 64–106; PULSE 54–80; RESP 16–18; TEMP 36.4–37.1; O2SAT 90–98; BMI 24.8
--- NOTE | 2022-04-29 03:35 | PC.NURSE ---
Patient on vapotherm 30L, patient tolerating well keeping o2 sats above 90's. Patient has been alert to self this shift. Whitt cath in place for accurate I&O's. VSS.
[2022-04-29 06:55] LABS: Basophils % 0.2 % (0.1-2.0); Eosinophils # 0.3 K/mm3 (0.0-0.4); Eosinophils % 2.2 % (0.1-12.0); Hematocrit 36.1 % (37.0-47.0); Hemoglobin 12.6 g/dL (12.2-16.2); Lymphocytes # 0.6 K/mm3 (0.7-4.5); Lymphocytes % 5.6 % (10-50); Mean Corpuscular HGB Conc 34.8 g/dL (31.8-35.4); Mean Corpuscular Hemoglobin 28.9 pg (27.0-31.2); Mean Platelet Volume 9.1 fl (7.4-10.4); Monocytes # 0.5 K/mm3 (0.1-1.0); Monocytes % 4.2 % (1.7-9.3); Neutrophils # 9.9 K/mm3 (1.8-7.8); Neutrophils % 87.9 % (37.0-80.0); Platelet Count 147 K/mm3 (142-424); Red Blood Count 4.35 M/mm3 (4.20-5.40); Red Cell Distribution Width 14.6 % (11.5-17.5); White Blood Count 11.3 K/mm3 (4.8-10.8)
[2022-04-29 06:56] LABS: MANUAL DIFFERENTIAL MANUAL DIFFERENTIAL (MANUAL DIFF)
[2022-04-29 07:25] LABS: Alanine Aminotransferase 16 U/L (12-78); Anion Gap 9.2 mEq/L (5-15); Aspartate Amino Transferase 38 U/L (14-36); Blood Urea Nitrogen 15 mg/dl (7-17); Calcium 7.8 mg/dl (8.4-10.2); Carbon Dioxide 21 mmol/L (22.0-30.0); Chloride 105 mmol/L (98-107); Creatinine Clearance Estimated 44 mL/min (50-200); Estimated Glomerular Filt Rate 96 ml/min (>60); GFR (African American) 117 ML/MIN (>60); Glucose 101 mg/dl (74-100); Magnesium 1.7 mg/dl (1.6-2.3); Potassium 4.2 mmoL/L (3.5-5.1); Sodium 131 mmol/L (136-145)
[2022-04-29 07:52] LABS: Lymphocytes % 9 % (10-50); Monocytes % 1 % (2-9); Neutrophils % 85 % (42-76); Total Cells Counted 100
[2022-04-29 07:53] LABS: Platelet Estimate Slight Decrease; RBC Morphology Normal
--- NOTE | 2022-04-29 08:03 | CT_ITS ---
FINAL REPORT TECHNIQUE: Then section axial CT images of the chest were obtained with contrast. Three-D reformatted images were also obtained.This study was performed with techniques to keep radiation doses as low as reasonably achievable (ALARA). Individualized dose reduction techniques using automated exposure control or adjustment of mA and/or kV according to the patient''s size were employed. CLINICAL HISTORY: COVID. SOA FINDINGS: There is motion artifact on many of the images which obscures many of the smaller arterial branches. There is no large or central pulmonary embolism. There is no evidence of thoracic aortic aneurysm or dissection. There is widespread, mild mediastinal adenopathy that is nonspecific and favored to be reactive. There are moderate changes of emphysema. There is mild bibasilar atelectasis. There are small bilateral pleural effusions. Posterior right upper lobe opacities are consistent with pneumonia. Limited images of the upper abdomen demonstrate bilateral renal cysts. There is a small of nonspecific right perihepatic fluid. IMPRESSION: Exam limited by motion. No large or central pulmonary embolism. Posterior right upper lobe pneumonia with bibasilar atelectasis and small bilateral pleural effusions. Reviewed, Interpreted and Dictated by Chad Myers III, MD Transcribed by Abdifatah Ang Authenticated and [facility]
--- NOTE | 2022-04-29 09:00 | HMH.ACPN2 ---
Internal Medicine - PN: Subj *Date: 04/29/22 *Time: 17:58 Interval history: 81-year-old female patient resting in bed quietly with eyes open, she is pleasantly confused. Vapotherm intact unable to wean off at present. She denies any chest pain or respiratory distress during the night. Exam Vital signs and Labs for Last 24 Hours: Temp Pulse Resp BP Pulse Ox 98.2 F 62 16 133/69 95 04/29/22 08:00 04/29/22 08:00 04/29/22 08:00 04/29/22 08:00 04/29/22 08:00 Laboratory Results - last 24 hr 04/28/22 08:59: Specimen Source l radial, O2 % 40%, ABG pH 7.46 H, ABG pCO2 29.1 L, ABG pO2 70.5 L, ABG HCO3 20.1 L, ABG Total CO2 21.0 L, ABG O2 Saturation 95, ABG Base Excess -3.8 L, Jose Test acceptable 04/29/22 06:45: WBC 11.3 H, RBC 4.35, Hgb 12.6, Hct 36.1 L, MCV 83.0, MCH 28.9, MCHC 34.8, RDW 14.6, Plt Count 147, MPV 9.1, Neut % (Auto) 87.9 H, Lymph % (Auto) 5.6 L, [place] % (Auto) 4.2, Eos % (Auto) 2.2, Baso % (Auto) 0.2, Neut # (Auto) 9.9 H, Lymph # (Auto) 0.6 L, [place] # (Auto) 0.5, Eos # (Auto) 0.3, Baso # (Auto) 0.0, Total Counted 100, Neutrophils % (Manual) 85 H, Band Neutrophils % 5.0, Lymphocytes % (Manual) 9 L, Monocytes % (Manual) 1 L, Platelet Estimate Slight decrease, RBC Morphology Normal 04/29/22 06:45: Sodium 131 L, Potassium 4.2 D, Chloride 105, Carbon Dioxide 21 L, Anion Gap 9.2, BUN 15, Creatinine 0.60 D, Estimated Creat Clear 44, Estimated GFR 96, Est GFR ( Amer) 117 D, Glucose 101 H, Calcium 7.8 L, Magnesium 1.7 04/29/22 06:45: AST 38 H D, ALT 16 D I & O for Last 24 hours: Intake & Output 04/26/22 04/27/22 04/28/22 04/29/22 23:59 23:59 23:59 23:59 Intake Total 5011 / 5011 1149 / 1149 Output Total 3200 / 3200 375 / 375 Balance 1811 / 1811 774 / 774 Weight 120 lb 128 lb 8 oz 135 lb Microbiology Reports for the Last 24 Hours: Microbiology 04/28/22 11:30 Sputum - Expectorated Sputum Gram Stain - Final 04/27/22 20:07 Urine,Clean Catch Urine Culture - Preliminary NO GROWTH AFTER 24 HOURS - Constitutional no acute distress, chronically ill appearing - *Routine HEENT Exam Head: Present: normocephalic Eye: Present: EOMI ENT: Present: mucous membranes moist - *Routine Neck Exam Present: trachea midline. Absent: tracheal deviation - *Routine Respiratory Exam Present: rhonchi. Absent: accessory muscle use - *Routine Cardiovascular Exam Present: RRR - *Routine Abdominal Exam Present: soft, normoactive bowel sounds. Absent: tenderness, distended - *Routine Extremities Exam Present: full ROM, pulses intact. Absent: cyanosis, clubbing, edema - *Routine Skin Exam Present: intact, dry. Absent: cyanosis, erythema - *Routine Neurological Exam Present: alert, altered mental status - Routine Psychiatric Exam Present: unable to assess Assessment and Plan (1) Septic shock Status: Acute Category: Medical Code(s): A41.9 - Sepsis, unspecified organism; R65.21 - Severe sepsis with septic shock (2) SIRS with acute organ dysfunction due to infectious process Status: Acute Category: Medical Code(s): A41.9 - Sepsis, unspecified organism; R65.20 - Severe sepsis without septic shock (3) CAP (community acquired pneumonia) Status: Acute Qualifiers: Laterality: right Lung location: unspecified part of lung Qualified Code(s): J18.9 - Pneumonia, unspecified organism Category: Medical Code(s): J18.9 - Pneumonia, unspecified organism (4) COVID-19 Status: Acute Category: Medical Code(s): U07.1 - COVID-19 (5) Hypothyroidism Status: Acute Qualifiers: Hypothyroidism type: acquired Qualified Code(s): E03.9 - Hypothyroidism, unspecified Category: Medical Code(s): E03.9 - Hypothyroidism, unspecified (6) Hypotension Status: Acute Category: Medical Code(s): I95.9 - Hypotension, unspecified - Assessment and plan all Dx Assessment and Plan for all problems:: Rounded with Dr. Portillo, all
--- NOTE | 2022-04-29 09:25 | HMH.PULMPN ---
Internal Medicine - PN: Subj *Date: 04/29/22 *Time: 11:50 Interval history: No acute respiratory vents overnight. Continue to remain on high flow nasal cannula. Exam - Constitutional Constitutional:: Present: no acute distress, comfortable - HENMT Exam HENMT: Present: normocephalic - Eye Exam Eyes:: Present: normal appearance both eyes and related structures - Neck Exam Neck:: Present: normal visual inspection - Respiratory Exam Respiratory:: Present: able to speak in complete sentences, respiratory distress, wheezing - Cardiovascular Exam Cardiac:: Present: S1, S2 - GI Exam GI:: Present: soft - Skin Exam Skin: Present: warm - Neurological Exam Neurological: Present: awake. Absent: oriented X3 - Extremities Exam Extremities: Present: no cyanosis, no clubbing - Psychiatric Exam Psychiatric: Present: normal affect Assessment and Plan (1) Septic shock Status: Acute Category: Medical Code(s): A41.9 - Sepsis, unspecified organism; R65.21 - Severe sepsis with septic shock (2) SIRS with acute organ dysfunction due to infectious process Status: Acute Category: Medical Code(s): A41.9 - Sepsis, unspecified organism; R65.20 - Severe sepsis without septic shock (3) CAP (community acquired pneumonia) Status: Acute Qualifiers: Laterality: right Lung location: unspecified part of lung Qualified Code(s): J18.9 - Pneumonia, unspecified organism Category: Medical Code(s): J18.9 - Pneumonia, unspecified organism (4) COVID-19 Status: Acute Category: Medical Code(s): U07.1 - COVID-19 (5) Hypothyroidism Status: Acute Qualifiers: Hypothyroidism type: acquired Qualified Code(s): E03.9 - Hypothyroidism, unspecified Category: Medical Code(s): E03.9 - Hypothyroidism, unspecified (6) Hypotension Status: Acute Category: Medical Code(s): I95.9 - Hypotension, unspecified - Assessment and plan all Dx Assessment and Plan for all problems:: #COVID-19 pneumonia: #Community-acquired pneumonia: Greater than [id number] smoking history, history of COPD. Questionable history of CAD. COVID-19 PCR positive. Influenza A&B negative Chest x-ray from today dense right upper lobe consolidation along with bilateral diffuse interstitial changes. Afebrile. Leukocytosis on admission. Adequate urine management. Hyponatremia and hypokalemia. Elevated BNP at 6660. CRP mildly elevated at 20.1. Interval update: Improvement in respiratory status. Continue to remain high flow nasal cannula. CT performed no obvious evidence of pulmonary embolism. Dense right middle lobe consolidation. Significant emphysematous changes noted. Afebrile. Hemodynamically stable. Improving leukocytosis. Blood and urine cultures pending. Prelim sputum culture gram-positive cocci Plan: -Lasix 40mg IV Once -Strict I's and O's. Discontinue maintenance fluids. -Continue high flow nasal oxygen supplementation to maintain O2 saturation goal of 90% and above. Wean to 20 L 40% this morning. Continue to wean to nasal cannula as tolerated - DuoNebs every 6 hours along with budesonide every 12 scheduled -Continue ceftriaxone azithromycin follow up blood sputum and urine cultures. -Continue Awake proning protocol. -Continue remdesivir x 5 days OR untill Discharge -Continue dexamethasone x10 days OR untill Discharge #Thank you for involving pulmonary in this patient care. We will continue to follow.
--- NOTE | 2022-04-29 09:48 | P.CONPHA_ITS ---
[facility] Pharmacy VTE Monitoring - Patient Demographics Admission date: 04/27/22 Report Date: 04/29/22 Time: 09:48 Allergies/Adverse Reactions: Patient Allergies No Known Allergies Allergy (Verified 01/15/22 11:02) Height: 1.57 m Weight: 61.235 kg Patient Problems: Current Active Problems CAP (community acquired pneumonia) (Acute) COVID-19 (Acute) SIRS (systemic inflammatory response syndrome) (Acute) Hypokalemia (Acute) Hypothyroidism (Acute) Hypertension (Acute) Septic shock (Acute) SIRS with acute organ dysfunction due to infectious process (Acute) Hypotension (Acute) Seizure disorder (Acute) - VTE Risk Labs: VTE Related Lab Results Hgb 12.6 g/dL (12.2-16.2) 04/29/22 06:45 Hct 36.1 % (37.0-47.0) L 04/29/22 06:45 Plt Count 147 K/mm3 (142-424) 04/29/22 06:45 BUN 15 mg/dl (7-17) 04/29/22 06:45 Creatinine 0.60 mg/dl (0.52-1.04) D 04/29/22 06:45 Estimated Creat Clear 44 mL/min (50-200) 04/29/22 06:45 VTE Risk Level: Moderate Risk - Prophylaxis VTE Prophylaxis Ordered?: Yes Types of VTE Prophylaxis: TEDS Knee High, Pharmacological Location of Applied Device: Bilateral Lower Extremeties Pharmacologic Type: Enoxaparin
--- NOTE | 2022-04-29 12:18 | PC.NURSE ---
Pt taken to COVID unit at this time
--- NOTE | 2022-04-29 14:06 | P.PN_ITS ---
Subjective Date: 04/29/22 Time: 14:06 Principal diagnosis: COVID Interval history: 81 yo WF in ICU in [facility]. Still on high flow oxygen. Off levophed No complaints of chest pain. Still confused. Exam Vital signs and Labs for Last 24 Hours: Temp Pulse Resp BP Pulse Ox 97.8 F 80 16 142/80 H 90 L 04/29/22 12:00 04/29/22 12:00 04/29/22 12:00 04/29/22 12:00 04/29/22 12:00 Laboratory Results - last 24 hr 04/29/22 06:45: WBC 11.3 H, RBC 4.35, Hgb 12.6, Hct 36.1 L, MCV 83.0, MCH 28.9, MCHC 34.8, RDW 14.6, Plt Count 147, MPV 9.1, Neut % (Auto) 87.9 H, Lymph % (Auto) 5.6 L, [place] % (Auto) 4.2, Eos % (Auto) 2.2, Baso % (Auto) 0.2, Neut # (Auto) 9.9 H, Lymph # (Auto) 0.6 L, [place] # (Auto) 0.5, Eos # (Auto) 0.3, Baso # (Auto) 0.0, Total Counted 100, Neutrophils % (Manual) 85 H, Band Neutrophils % 5.0, Lymphocytes % (Manual) 9 L, Monocytes % (Manual) 1 L, Platelet Estimate Slight decrease, RBC Morphology Normal 04/29/22 06:45: Sodium 131 L, Potassium 4.2 D, Chloride 105, Carbon Dioxide 21 L, Anion Gap 9.2, BUN 15, Creatinine 0.60 D, Estimated Creat Clear 44, Estimated GFR 96, Est GFR ( Amer) 117 D, Glucose 101 H, Calcium 7.8 L, Magnesium 1.7 04/29/22 06:45: AST 38 H D, ALT 16 D I & O for Last 24 hours: Intake & Output 04/27/22 04/28/22 04/29/22 04/30/22 11:59 11:59 11:59 11:59 Intake Total 3800 / 3800 2360 / 2360 120 / 120 Output Total 1500 / 1500 3675 / 3675 Balance 2300 / 2300 -1315 / -1315 120 / 120 Weight 128 lb 8 oz 134 lb 15.825 oz Microbiology Reports for the Last 24 Hours: Microbiology 04/27/22 20:07 Urine,Clean Catch Urine Culture - Preliminary 04/28/22 11:30 Sputum - Expectorated Sputum Gram Stain - Final - Constitutional no acute distress - *Routine Respiratory Exam Present: CTA bilaterally, rhonchi - *Routine Cardiovascular Exam Present: RRR - *Routine Extremities Exam Absent: cyanosis, clubbing, edema - *Routine Neurological Exam Present: alert Progress Note: A&P (1) Septic shock Status: Acute (2) SIRS with acute organ dysfunction due to infectious process Status: Acute (3) CAP (community acquired pneumonia) Status: Acute (4) COVID-19 Status: Acute (5) Hypothyroidism Status: Acute (6) Hypotension Status: Acute Assessment and Plan for All Diagnoses:: 1. Pneumonia, patient is on ceftriaxone along with steroids. 2. COVID positive, pulmonary following 3. Abnormal EKG with near normal LVEF of 50-55% with infero-lateral hypokinesis. Remote history of coronary stenting. No further testing from a cardiac standpoint at this time. Recommend outpatient follow up for stress testing in near future. 4. History of hypertension, holding BP meds currently. Continue to follow and restart metoprolol and lisinopril as needed for sustained BP >140/80 mm Hg. 5. Elevated BNP likely related to pulmonary issues. Continue to monitor I/O's and use diuretics as needed. 6. History of seizure disorder per chart, on Keppra 7. Poor historian/possible dementia
--- NOTE | 2022-04-29 18:04 | PC.NURSE ---
Pt is alert to self. Some faint wheezes noted to lungs. She remains on vapotherm 20L/40% w/O2 saturations measuring in the low 90's. She's been NSR/trigeminy on telemetry. Approximately 3800 mls of clear yellow urine since this AM. Appetite is poor with pt eating approx 25% of meals. Bed is locked and in the lowest position, call light is within reach.
[2022-04-30] VITALS (11 sets, daily range): BP systolic 117–141; BP diastolic 76–90; PULSE 60–99; RESP 18–22; TEMP 36.4–37.1; O2SAT 91–98; BMI 23.0
--- NOTE | 2022-04-30 01:27 | ECG_ITS ---
APPROVED REPORT Exam: Resting ECG HR:72 bpm ECG Measurements Heart Rate 72 AXES QRSd 110 QRS 64 QT 450 T -58 QTc 475 Conclusion ATRIAL FIBRILLATION WITH ABERRANT CONDUCTION OR VENTRICULAR PREMATURE COMPLEXES INFERIOR MYOCARDIAL INFARCTION , OF INDETERMINATE AGE [40+ ms Q WAVE AND/OR ST/T ABNORMALITY IN II/aVF] ABNORMAL ECG UNCONFIRMED REPORT Electronically signed by : José Corrigan MD 05/03/2022 14:10:14
--- NOTE | 2022-04-30 05:10 | PC.NURSE ---
Pt is alert and oriented to name and birthday. Pt has rested through night, no complaints. Pt is confused. Pt O2 sat 91-94% on vapotherm 20L at 40%. Fine crackles and wheezing present in both lungs. HR 60-79. Rhythm change noted, EKG obtained, qm consultant notified, new orders received with IV lasix once, pt output 2500mL, current rhythm shows NSR and fluctuated to A. flutter at times.
[2022-04-30 07:02] LABS: Alanine Aminotransferase 21 U/L (12-78); Aspartate Amino Transferase 32 U/L (14-36)
[2022-04-30 07:38] LABS: Basophils % 0.3 % (0.1-2.0); Eosinophils # 0.1 K/mm3 (0.0-0.4); Eosinophils % 0.8 % (0.1-12.0); Hemoglobin 12.3 g/dL (12.2-16.2); Lymphocytes # 0.7 K/mm3 (0.7-4.5); Lymphocytes % 5.4 % (10-50); MANUAL DIFFERENTIAL MANUAL DIFFERENTIAL (MANUAL DIFF); Mean Corpuscular HGB Conc 31.4 g/dL (31.8-35.4); Mean Corpuscular Hemoglobin 29.1 pg (27.0-31.2); Mean Corpuscular Volume 92.8 fl (81-99); Monocytes # 0.3 K/mm3 (0.1-1.0); Monocytes % 2.8 % (1.7-9.3); Neutrophils # 10.9 K/mm3 (1.8-7.8); Neutrophils % 90.7 % (37.0-80.0); Red Blood Count 4.21 M/mm3 (4.20-5.40); Red Cell Distribution Width 15.6 % (11.5-17.5)
[2022-04-30 07:41] LABS: Platelet Count 145 K/mm3 (142-424)
[2022-04-30 07:45] LABS: Anion Gap 14.1 mEq/L (5-15); Blood Urea Nitrogen 17 mg/dl (7-17); Calcium 8.9 mg/dl (8.4-10.2); Carbon Dioxide 26 mmol/L (22.0-30.0); Chloride 97 mmol/L (98-107); Creatinine Clearance Estimated 41 mL/min (50-200); Estimated Glomerular Filt Rate 96 ml/min (>60); GFR (African American) 117 ML/MIN (>60); Glucose 119 mg/dl (74-100); Potassium 3.1 mmoL/L (3.5-5.1); Sodium 134 mmol/L (136-145)
[2022-04-30 07:48] LABS: Lymphocytes % 9 % (10-50); Monocytes % 1 % (2-9); Neutrophils % 90 % (42-76); Platelet Estimate Normal; RBC Morphology Normal; Total Cells Counted 100
--- NOTE | 2022-04-30 09:04 | HMH.ACPN2 ---
Internal Medicine - PN: Subj *Date: 04/30/22 *Time: 13:37 Interval history: 81-year-old female patient sitting up in bed resting quietly, she denies any shortness of breath or chest pain during the night. She remains on Vapotherm and is tolerating a regular breakfast without difficulties. She is requesting to be discharged her status explained to her she cannot be discharged on the high level of oxygen, she verbalizes understanding. Exam Vital signs and Labs for Last 24 Hours: Temp Pulse Resp BP Pulse Ox 98.6 F 75 22 119/81 92 L 04/30/22 04:00 04/30/22 06:20 04/30/22 04:00 04/30/22 04:00 04/30/22 06:20 Laboratory Results - last 24 hr 04/30/22 05:50: AST 32, ALT 21 D 04/30/22 05:50: Sodium 134 L, Potassium 3.1 L D, Chloride 97 L, Carbon Dioxide 26, Anion Gap 14.1, BUN 17, Creatinine 0.60, Estimated Creat Clear 41, Estimated GFR 96, Est GFR ( Amer) 117, Glucose 119 H, Calcium 8.9 04/30/22 06:30: WBC 12.0 H, RBC 4.21, Hgb 12.3, Hct 39.0, MCV 92.8, MCH 29.1, MCHC 31.4 L, RDW 15.6, Plt Count 145, MPV 12.0 H, Neut % (Auto) 90.7 H, Lymph % (Auto) 5.4 L, [place] % (Auto) 2.8, Eos % (Auto) 0.8, Baso % (Auto) 0.3, Neut # (Auto) 10.9 H, Lymph # (Auto) 0.7, [place] # (Auto) 0.3, Eos # (Auto) 0.1, Baso # (Auto) 0.0, Total Counted 100, Neutrophils % (Manual) 90 H, Lymphocytes % (Manual) 9 L, Monocytes % (Manual) 1 L, Platelet Estimate Normal, RBC Morphology Normal I & O for Last 24 hours: Intake & Output 04/27/22 04/28/22 04/29/22 04/30/22 23:59 23:59 23:59 23:59 Intake Total 5011 / 5011 1896 / 1896 850 / 850 Output Total 3200 / 3200 5775 / 5775 2500 / 2500 Balance 1811 / 1811 -3879 / -3879 -1650 / -1650 Weight 120 lb 128 lb 8 oz 134 lb 15.825 oz 125 lb 4 oz Microbiology Reports for the Last 24 Hours: Microbiology 04/28/22 11:30 Sputum - Expectorated Sputum Gram Stain - Final 04/28/22 11:30 Sputum - Expectorated Sputum Sputum Culture - Preliminary 04/27/22 20:07 Urine,Clean Catch Urine Culture - Preliminary 04/27/22 20:07 Blood Blood Culture - Preliminary NO GROWTH AFTER 48 HOURS 04/27/22 20:07 Blood Blood Culture - Preliminary NO GROWTH AFTER 48 HOURS - Constitutional no acute distress - *Routine HEENT Exam Head: Present: normocephalic Eye: Present: EOMI ENT: Present: mucous membranes moist - *Routine Neck Exam Present: trachea midline. Absent: tracheal deviation - *Routine Respiratory Exam Present: rhonchi. Absent: accessory muscle use - *Routine Cardiovascular Exam Present: RRR - *Routine Abdominal Exam Present: soft, normoactive bowel sounds. Absent: tenderness, firm - *Routine Extremities Exam Present: full ROM, pulses intact. Absent: cyanosis, clubbing, edema, calf tenderness - *Routine Skin Exam Present: intact, dry. Absent: cyanosis, erythema - *Routine Neurological Exam Present: alert. Absent: motor deficit - Routine Psychiatric Exam Present: unable to assess Assessment and Plan (1) Septic shock Status: Acute Category: Medical Code(s): A41.9 - Sepsis, unspecified organism; R65.21 - Severe sepsis with septic shock (2) SIRS with acute organ dysfunction due to infectious process Status: Acute Category: Medical Code(s): A41.9 - Sepsis, unspecified organism; R65.20 - Severe sepsis without septic shock (3) CAP (community acquired pneumonia) Status: Acute Qualifiers: Laterality: right Lung location: unspecified part of lung Qualified Code(s): J18.9 - Pneumonia, unspecified organism Category: Medical Code(s): J18.9 - Pneumonia, unspecified organism (4) COVID-19 Status: Acute Category: Medical Code(s): U07.1 - COVID-19 (5) Hypothyroidism Status: Acute Qualifiers: Hypothyroidism type: acquired Qualified Code(s): E03.9 - Hypothyroidism, unspecified Category: Medical Code(s): E03.9 - Hypothyroidism, unspecified (6) Hypotension Status: Ac
--- NOTE | 2022-04-30 09:11 | P.PN_ITS ---
Subjective Date: 04/30/22 Time: 09:11 Principal diagnosis: COVID Interval history: 81-year-old white female in ICU in no acute distress. Still requiring high flow oxygen. Frustrated with continued hospital stay. Telemetry shows sinus rhythm with mild tachycardia Exam Vital signs and Labs for Last 24 Hours: Temp Pulse Resp BP Pulse Ox 98.6 F 75 22 119/81 92 L 04/30/22 04:00 04/30/22 06:20 04/30/22 04:00 04/30/22 04:00 04/30/22 06:20 Laboratory Results - last 24 hr 04/30/22 05:50: AST 32, ALT 21 D 04/30/22 05:50: Sodium 134 L, Potassium 3.1 L D, Chloride 97 L, Carbon Dioxide 26, Anion Gap 14.1, BUN 17, Creatinine 0.60, Estimated Creat Clear 41, Estimated GFR 96, Est GFR ( Amer) 117, Glucose 119 H, Calcium 8.9 04/30/22 06:30: WBC 12.0 H, RBC 4.21, Hgb 12.3, Hct 39.0, MCV 92.8, MCH 29.1, MCHC 31.4 L, RDW 15.6, Plt Count 145, MPV 12.0 H, Neut % (Auto) 90.7 H, Lymph % (Auto) 5.4 L, [place] % (Auto) 2.8, Eos % (Auto) 0.8, Baso % (Auto) 0.3, Neut # (Auto) 10.9 H, Lymph # (Auto) 0.7, [place] # (Auto) 0.3, Eos # (Auto) 0.1, Baso # (Auto) 0.0, Total Counted 100, Neutrophils % (Manual) 90 H, Lymphocytes % (Manual) 9 L, Monocytes % (Manual) 1 L, Platelet Estimate Normal, RBC Morphology Normal I & O for Last 24 hours: Intake & Output 04/27/22 04/28/22 04/29/22 04/30/22 11:59 11:59 11:59 11:59 Intake Total 3800 / 3800 2360 / 2360 1597 / 1597 Output Total 1500 / 1500 3675 / 3675 6300 / 6300 Balance 2300 / 2300 -1315 / -1315 -4703 / -4703 Weight 128 lb 8 oz 134 lb 15.825 oz 125 lb 4 oz Microbiology Reports for the Last 24 Hours: Microbiology 04/28/22 11:30 Sputum - Expectorated Sputum Gram Stain - Final 04/28/22 11:30 Sputum - Expectorated Sputum Sputum Culture - Preliminary 04/27/22 20:07 Urine,Clean Catch Urine Culture - Preliminary 04/27/22 20:07 Blood Blood Culture - Preliminary NO GROWTH AFTER 48 HOURS 04/27/22 20:07 Blood Blood Culture - Preliminary NO GROWTH AFTER 48 HOURS - Constitutional no acute distress - *Routine Respiratory Exam Present: rhonchi - *Routine Cardiovascular Exam Present: RRR, tachycardia - *Routine Neurological Exam Present: alert, oriented X3 Progress Note: A&P (1) Septic shock Status: Acute (2) SIRS with acute organ dysfunction due to infectious process Status: Acute (3) CAP (community acquired pneumonia) Status: Acute (4) COVID-19 Status: Acute (5) Hypothyroidism Status: Acute (6) Hypotension Status: Acute Assessment and Plan for All Diagnoses:: 1. Pneumonia, patient is on ceftriaxone along with steroids. 2. COVID positive 3. Abnormal EKG with near normal LVEF of 50-55% with infero-lateral hypokinesis. Remote history of coronary stenting. No further testing from a cardiac standpoint at this time. Recommend outpatient follow up for stress testing in near future. 4. History of hypertension, restart metoprolol for heart rate control 5. Elevated BNP likely related to pulmonary issues. Continue to monitor I/O's and use diuretics as needed. 6. History of seizure disorder per chart, on Keppra 7. Poor historian/possible dementia
--- NOTE | 2022-04-30 10:20 | PC.NURSE ---
RESP CARE NOTE: Pt SpO2 at 97% on 20L/40% vapotherm. Weaned oxygen to 4 lpm high flow nasal cannula, to keep SPO2 greater than 90%. Will continue to wean and monitor patient.
--- NOTE | 2022-04-30 13:12 | PC.NURSE ---
PT IS RESTING IN BED AT THIS TIME HOWEVER HAS BEEN VERY RESTLESS T/O THE SHIFT. PT STATES SHE IS DETERMINED TO GO HOME AND WANTS TO GO HOME TODAY. NOTIFIED IAM AND HE STATED PER PT WOULD HAVE TO SIGN OUT AMA IF SHE WANTED TO LEAVE TODAY. PT IS ONLY ALERT TO SELF//PLACE. LUNG SOUNDS DIMINISHED WITH CRACKLES (RT BASE). EATING AND DRINKING FAIR. O2 SATURATION HAS MAINTAINED 92-96% ON 3 L NC. WILL CONTINUE TO MONITOR.
[2022-05-01] VITALS (12 sets, daily range): BP systolic 102–155; BP diastolic 65–85; PULSE 53–72; RESP 16–20; TEMP 36.4–37.1; O2SAT 92–97; BMI 23.6
--- NOTE | 2022-05-01 04:42 | PC.NURSE ---
Pt is alert to name and birthday. Pt is confused, but pleasant. Pt has rested through the night with no new complaints. Pt O2 sat is 92-96% 3L NC. Lung sounds are diminished, right base fine crackles. Whitt in place and draining. Pt has been NSR on tele, HR 60-70s.
[2022-05-01 07:25] LABS: Basophils % 0.3 % (0.1-2.0); Eosinophils % 0.3 % (0.1-12.0); Hematocrit 45.3 % (37.0-47.0); Hemoglobin 14.4 g/dL (12.2-16.2); Lymphocytes # 0.6 K/mm3 (0.7-4.5); Lymphocytes % 7.2 % (10-50); Mean Corpuscular HGB Conc 31.8 g/dL (31.8-35.4); Mean Corpuscular Hemoglobin 28.6 pg (27.0-31.2); Mean Platelet Volume 8.4 fl (7.4-10.4); Monocytes # 0.4 K/mm3 (0.1-1.0); Monocytes % 5.1 % (1.7-9.3); Neutrophils # 7.6 K/mm3 (1.8-7.8); Neutrophils % 87.1 % (37.0-80.0); Platelet Count 211 K/mm3 (142-424); Red Blood Count 5.04 M/mm3 (4.20-5.40); Red Cell Distribution Width 15.2 % (11.5-17.5); White Blood Count 8.7 K/mm3 (4.8-10.8)
[2022-05-01 07:30] LABS: Alanine Aminotransferase 23 U/L (12-78); Aspartate Amino Transferase 23 U/L (14-36)
[2022-05-01 07:31] LABS: MANUAL DIFFERENTIAL MANUAL DIFFERENTIAL (MANUAL DIFF)
[2022-05-01 07:34] LABS: Anion Gap 9.1 mEq/L (5-15); Blood Urea Nitrogen 33 mg/dl (7-17); Calcium 8.4 mg/dl (8.4-10.2); Carbon Dioxide 34 mmol/L (22.0-30.0); Chloride 94 mmol/L (98-107); Creatinine Clearance Estimated 42 mL/min (50-200); Estimated Glomerular Filt Rate 81 ml/min (>60); GFR (African American) 98 ML/MIN (>60); Glucose 103 mg/dl (74-100); Potassium 3.1 mmoL/L (3.5-5.1); Sodium 134 mmol/L (136-145)
[2022-05-01 10:15] LABS: Lymphocytes % 10 % (10-50); Monocytes % 1 % (2-9); Neutrophils % 89 % (42-76); Total Cells Counted 100
[2022-05-01 10:16] LABS: Acanthocytes 1+; Platelet Estimate Normal
--- NOTE | 2022-05-01 11:45 | XR_ITS ---
PROCEDURE INFORMATION: Exam: XR Chest Exam date and time: 05/01/2022 11:52 AM Age: 81 years old Clinical indication: Condition or disease; Cough and shortness of breath; Patient HX: PT has covid, C/O cough, tightness, SOA. HX asthma, smoker TECHNIQUE: Imaging protocol: Radiologic exam of the chest. Views: 1 view. COMPARISON: CR XR CHEST PORTABLE 04/28/2022 9:05 AM FINDINGS: Lungs: Improved aeration compared to previous. Moderate consolidation still noted in the right mid lung laterally. Mild interstitial opacities bilaterally. Pleural spaces: No pneumothorax. Heart/Mediastinum: Mild cardiomegaly, accentuated by the AP projection. Vasculature: Vascular calcifications. Bones/joints: No acute fracture. IMPRESSION: Improved aeration compared to previous. Moderate consolidation still noted in the right mid lung laterally, suggestive of pneumonia. Mild interstitial opacities bilaterally.
--- NOTE | 2022-05-01 12:35 | P.PN_ITS ---
Internal Medicine - PN: Subj *Date: 05/01/22 *Time: 12:35 Exam Vital signs and Labs for Last 24 Hours: Temp Pulse Resp BP Pulse Ox 97.6 F 55 L 16 149/78 H 95 05/01/22 12:00 05/01/22 12:08 05/01/22 12:00 05/01/22 12:00 05/01/22 12:08 Laboratory Results - last 24 hr 04/27/22 20:07: Urine Color Yellow, Urine Appearance Clear, Urine pH 7.0, Ur Specific [place] 1.015, Urine Protein Negative, Urine Glucose (UA) Negative, Urine Ketones Negative, Urine Blood Negative, Urine Nitrate Negative, Urine Bilirubin Negative, Urine Urobilinogen 0.2, Ur Leukocyte Esterase Negative, Urine Bacteria 2+ 05/01/22 07:00: WBC 8.7 D, RBC 5.04, Hgb 14.4, Hct 45.3, MCV 90.0, MCH 28.6, MCHC 31.8, RDW 15.2, Plt Count 211 D, MPV 8.4, Neut % (Auto) 87.1 H, Lymph % (Auto) 7.2 L, [place] % (Auto) 5.1, Eos % (Auto) 0.3, Baso % (Auto) 0.3, Neut # (Auto) 7.6, Lymph # (Auto) 0.6 L, [place] # (Auto) 0.4, Eos # (Auto) 0.0, Baso # (Auto) 0.0, Total Counted 100, Neutrophils % (Manual) 89 H, Lymphocytes % (Manual) 10, Monocytes % (Manual) 1 L, Platelet Estimate Normal, Acanthocytes (S pur) 1+ 05/01/22 07:00: Sodium 134 L, Potassium 3.1 L, Chloride 94 L, Carbon Dioxide 34 H, Anion Gap 9.1, BUN 33 H D, Creatinine 0.70, Estimated Creat Clear 42, Estimated GFR 81, Est GFR ( Amer) 98, Glucose 103 H, Calcium 8.4 05/01/22 07:00: AST 23 D, ALT 23 I & O for Last 24 hours: Intake & Output 04/28/22 04/29/22 04/30/22 05/01/22 23:59 23:59 23:59 23:59 Intake Total 5011 / 5011 1896 / 1896 2722 / 2722 480 / 480 Output Total 3200 / 3200 5775 / 5775 3800 / 3800 350 / 350 Balance 1811 / 1811 -3879 / -3879 -1078 / -1078 130 / 130 Weight 58.287 kg 61.23 kg 56.812 kg 58.289 kg Microbiology Reports for the Last 24 Hours: Microbiology 04/27/22 20:07 Urine,Clean Catch Urine Culture - Final Aerococcus species 04/28/22 11:30 Sputum - Expectorated Sputum Gram Stain - Final 04/28/22 11:30 Sputum - Expectorated Sputum Sputum Culture - Final Pseudomonas aeruginosa Assessment and Plan (1) Septic shock Status: Acute Category: Medical Code(s): A41.9 - Sepsis, unspecified organism; R65.21 - Severe sepsis with septic shock (2) SIRS with acute organ dysfunction due to infectious process Status: Acute Category: Medical Code(s): A41.9 - Sepsis, unspecified organism; R65.20 - Severe sepsis without septic shock (3) CAP (community acquired pneumonia) Status: Acute Qualifiers: Laterality: right Lung location: unspecified part of lung Qualified Code(s): J18.9 - Pneumonia, unspecified organism Category: Medical Code(s): J18.9 - Pneumonia, unspecified organism (4) COVID-19 Status: Acute Category: Medical Code(s): U07.1 - COVID-19 (5) Hypothyroidism Status: Acute Qualifiers: Hypothyroidism type: acquired Qualified Code(s): E03.9 - Hypothyroidism, unspecified Category: Medical Code(s): E03.9 - Hypothyroidism, unspecified (6) Hypotension Status: Acute Category: Medical Code(s): I95.9 - Hypotension, unspecified The patient's infection will respond to the chosen ABx?: No (CHANGED FROM ROCEPHIN --> CEFEPIME BASED ON CULTURES) Is the patient receiving the right drug, dose, and route?: Yes Could a more targeted ABx be ordered?: No (THERAPY TARGETED BASED ON C&S RESULTS POSTED THIS AM)
--- NOTE | 2022-05-01 12:47 | HMH.ACPN2 ---
Internal Medicine - PN: Subj *Date: 05/01/22 *Time: 13:01 Interval history: Nursing staff is noting that patient had a restless night. She was intermittently confused remains confused when examined this morning. I know her line from seeing her in the office she is typically much more lucid and clear. Chest film done earlier this morning shows some clearing in the filtrated process on the right, but still residual disease. We are continuing to wean oxygen, she is gone from high flow to cannula. Exam Vital signs and Labs for Last 24 Hours: Temp Pulse Resp BP Pulse Ox 97.6 F 55 L 16 149/78 H 95 05/01/22 12:00 05/01/22 12:08 05/01/22 12:00 05/01/22 12:00 05/01/22 12:08 Laboratory Results - last 24 hr 04/27/22 20:07: Urine Color Yellow, Urine Appearance Clear, Urine pH 7.0, Ur Specific [place] 1.015, Urine Protein Negative, Urine Glucose (UA) Negative, Urine Ketones Negative, Urine Blood Negative, Urine Nitrate Negative, Urine Bilirubin Negative, Urine Urobilinogen 0.2, Ur Leukocyte Esterase Negative, Urine Bacteria 2+ 05/01/22 07:00: WBC 8.7 D, RBC 5.04, Hgb 14.4, Hct 45.3, MCV 90.0, MCH 28.6, MCHC 31.8, RDW 15.2, Plt Count 211 D, MPV 8.4, Neut % (Auto) 87.1 H, Lymph % (Auto) 7.2 L, [place] % (Auto) 5.1, Eos % (Auto) 0.3, Baso % (Auto) 0.3, Neut # (Auto) 7.6, Lymph # (Auto) 0.6 L, [place] # (Auto) 0.4, Eos # (Auto) 0.0, Baso # (Auto) 0.0, Total Counted 100, Neutrophils % (Manual) 89 H, Lymphocytes % (Manual) 10, Monocytes % (Manual) 1 L, Platelet Estimate Normal, Acanthocytes ([place]) 1+ 05/01/22 07:00: Sodium 134 L, Potassium 3.1 L, Chloride 94 L, Carbon Dioxide 34 H, Anion Gap 9.1, BUN 33 H D, Creatinine 0.70, Estimated Creat Clear 42, Estimated GFR 81, Est GFR ( Amer) 98, Glucose 103 H, Calcium 8.4 05/01/22 07:00: AST 23 D, ALT 23 I & O for Last 24 hours: Intake & Output 04/28/22 04/29/22 04/30/22 05/01/22 23:59 23:59 23:59 23:59 Intake Total 5011 / 5011 1896 / 1896 2722 / 2722 480 / 480 Output Total 3200 / 3200 5775 / 5775 3800 / 3800 350 / 350 Balance 1811 / 1811 -3879 / -3879 -1078 / -1078 130 / 130 Weight 128 lb 8 oz 134 lb 15.825 oz 125 lb 4 oz 128 lb 8.084 oz Microbiology Reports for the Last 24 Hours: Microbiology 04/27/22 20:07 Urine,Clean Catch Urine Culture - Final Aerococcus species 04/28/22 11:30 Sputum - Expectorated Sputum Gram Stain - Final 04/28/22 11:30 Sputum - Expectorated Sputum Sputum Culture - Final Pseudomonas aeruginosa - Constitutional no acute distress, thin - *Routine HEENT Exam Head: Present: normocephalic Eye: Present: EOMI, PERRL ENT: Present: mucous membranes moist - *Routine Neck Exam Present: supple. Absent: lymphadenopathy - *Routine Respiratory Exam Present: rhonchi, crackles, diminished air movement. Absent: accessory muscle use, respiratory distress - *Routine Cardiovascular Exam Present: RRR - *Routine Abdominal Exam Present: soft, normoactive bowel sounds. Absent: tenderness - *Routine Extremities Exam Absent: cyanosis, clubbing, edema - *Routine Skin Exam Present: warm. Absent: rash - *Routine Neurological Exam Present: alert, altered mental status, vision grossly intact, hearing grossly intact. Absent: oriented X3 Assessment and Plan (1) Septic shock Status: Acute Category: Medical Code(s): A41.9 - Sepsis, unspecified organism; R65.21 - Severe sepsis with septic shock (2) SIRS with acute organ dysfunction due to infectious process Status: Acute Category: Medical Code(s): A41.9 - Sepsis, unspecified organism; R65.20 - Severe sepsis without septic shock (3) CAP (community acquired pneumonia) Status: Acute Qualifiers: Laterality: right Lung location: unspecified part of lung Qualified Code(s): J18.9 - Pneumonia, unspecified organism Category: Medical Code(s): J18.9 - Pneumonia, unspecified organism (4) COVID-19 Status: Acute Cat
--- NOTE | 2022-05-01 19:31 | PC.NURSE ---
VS stable, patient upset she wasnt able to go home. Oxygen at 3LNC. Potassium bags not fully infused, patient refused. No other changes noted.
[2022-05-02] VITALS (10 sets, daily range): BP systolic 101–124; BP diastolic 54–89; PULSE 50–86; RESP 16–18; TEMP 36.7–37; O2SAT 87–97; BMI 22.4
--- NOTE | 2022-05-02 04:47 | PC.NURSE ---
Pt was able to answer all orientation questions but had periods of confusion. Lung sounds are diminished in the bilateral bases. Tolerating 3L nasal cannula well. She has rested intermittently this shift. Bed alarm and seizure pads in place for pt safety. Telemetry has shown NSR to sinus maame this shift.
--- NOTE | 2022-05-02 06:16 | PC.NURSE ---
Pt lost IV access this am at 0600. This RN could not find access. JASSON Garcia attempted. vending supervisor Lui attempted. Dr. Portillo paged and notified. Dr. Portillo stated that he was going to send pt home around lunchtime and stated to hold IV meds.
[2022-05-02 08:50] LABS: Basophils % 0.2 % (0.1-2.0); Eosinophils % 0.6 % (0.1-12.0); Hematocrit 46.5 % (37.0-47.0); Lymphocytes # 0.7 K/mm3 (0.7-4.5); Lymphocytes % 10.1 % (10-50); Mean Corpuscular HGB Conc 32.3 g/dL (31.8-35.4); Mean Corpuscular Volume 89.8 fl (81-99); Monocytes # 0.3 K/mm3 (0.1-1.0); Monocytes % 3.6 % (1.7-9.3); Neutrophils # 5.9 K/mm3 (1.8-7.8); Neutrophils % 85.5 % (37.0-80.0); Platelet Count 215 K/mm3 (142-424); Red Blood Count 5.17 M/mm3 (4.20-5.40); Red Cell Distribution Width 15.1 % (11.5-17.5)
[2022-05-02 08:54] LABS: MANUAL DIFFERENTIAL MANUAL DIFFERENTIAL (MANUAL DIFF)
[2022-05-02 08:59] LABS: Alanine Aminotransferase 27 U/L (12-78); Anion Gap 10.1 mEq/L (5-15); Aspartate Amino Transferase 25 U/L (14-36); Blood Urea Nitrogen 33 mg/dl (7-17); Calcium 8.5 mg/dl (8.4-10.2); Carbon Dioxide 35 mmol/L (22.0-30.0); Chloride 90 mmol/L (98-107); Creatinine Clearance Estimated 40 mL/min (50-200); Estimated Glomerular Filt Rate 81 ml/min (>60); GFR (African American) 98 ML/MIN (>60); Glucose 143 mg/dl (74-100); Potassium 3.1 mmoL/L (3.5-5.1); Sodium 132 mmol/L (136-145)
[2022-05-02 09:27] LABS: Lymphocytes % 22 % (10-50); Monocytes % 1 % (2-9); Neutrophils % 77 % (42-76); Platelet Estimate Normal; RBC Morphology Normal; Total Cells Counted 100
--- NOTE | 2022-05-02 12:11 | HMH.DCSUM ---
General - General Admission date:: 04/27/22 Discharge date: 05/02/22 HPI HPI: 81-year-old female patient presented to the [facility] emergency department via EMS for family reports of weakness and temperature for 2 days. EMS reports patient became lethargic and drowsy during transport and needed nonrebreather in route. In the emergency department patient required Vapotherm Due to hypotension in the emergency department she required several hours of Levophed IV Heart rate 95, temperature 102.7 rectally, blood pressure 77/46 requiring sepsis bolus, community-acquired pneumonia Hospital Course Hospital Course: Patient is a 81-year-old white female, known to me from the office, resented to the emergency room here following a 2-day history of fever and weakness. Has underlying COPD. Patient became acutely lethargic in route, placed on 10 L per nonrebreather and worked up in the emergency room. She was placed on Levophed transiently, admitted with a diagnosis of COVID, severe sepsis with organ dysfunction and septic shock. Patient's initial chest film showed a dense consolidation in the upper lobe distribution. Patient required high flow O2, subsequently changed to a cannula and maintained good saturations. Subsequent chest film showed improved aeration the right side, consistent with of the pneumonia. Blood cultures negative x2 Urine culture grew contaminant. Sputum culture grew out moderate to Pseudomonas. She was subsequently placed on cefepime for coverage. The bacteria is also sensitive to Levaquin. Patient had episodic confusion off and on, was later on the morning of her discharge. Carries a diagnosis of underlying dementia. She has poor recollection of short parts of her hospitalization. I spoke with her son Isaias. Patient will be discharged in the care of of her other son Rubens. We will send her home on O2 follow her up in the office. Overall the patient received excellent care and clinically responded to treatment. Objective Vital signs: Temp Pulse Resp BP Pulse Ox 98.6 F 65 16 116/67 87 L 05/02/22 11:33 05/02/22 12:11 05/02/22 11:33 05/02/22 11:33 05/02/22 12:07 no acute distress, thin, cooperative - *Routine HEENT Exam Head: Present: normocephalic Eye: Present: EOMI, PERRL ENT: Present: mucous membranes moist - *Routine Neck Exam Present: supple - *Routine Respiratory Exam Present: rhonchi. Absent: accessory muscle use, rales, respiratory distress, stridor, wheezes, crackles, distant breath sounds - *Routine Cardiovascular Exam Present: RRR - *Routine Abdominal Exam Present: soft, normoactive bowel sounds. Absent: tenderness - *Routine Extremities Exam Absent: cyanosis, clubbing, edema, calf tenderness - *Routine Skin Exam Present: warm. Absent: rash Results Labs on day of discharge: Labs from last 24 hours 05/02/22 05/02/22 08:00 08:00 WBC 7.0 RBC 5.17 Hgb 15.0 Hct 46.5 MCV 89.8 MCH 29.0 MCHC 32.3 RDW 15.1 Plt Count 215 MPV 8.0 Neut % (Auto) 85.5 H Lymph % (Auto) 10.1 Cotton % (Auto) 3.6 Eos % (Auto) 0.6 Baso % (Auto) 0.2 Neut # (Auto) 5.9 Lymph # (Auto) 0.7 Cotton # (Auto) 0.3 Eos # (Auto) 0.0 Baso # (Auto) 0.0 Total Counted 100 Neutrophils % (Manual) 77 H Lymphocytes % (Manual) 22 Monocytes % (Manual) 1 L Platelet Estimate Normal RBC Morphology Normal Sodium 132 L Potassium 3.1 L Chloride 90 L Carbon Dioxide 35 H Anion Gap 10.1 BUN 33 H Creatinine 0.70 Estimated Creat Clear 40 Estimated GFR 81 Est GFR ( Amer) 98 Glucose 143 H Calcium 8.5 AST 25 ALT 27 Preliminary micro results at discharge 04/27/22 20:07 Blood Culture - Preliminary Blood NO GROWTH AFTER 48 HOURS 04/27/22 20:07 Blood Culture - Preliminary Blood NO GROWTH AFTER 48 HOURS DS: Diagnosis - Discharge Diagnosis (1) Sept
--- NOTE | 2022-05-02 12:19 | PC.NURSE ---
Patient placed on room air for oxygen saturation per Kaylan, Respiratory therapist. Patient's oxygen saturation 87% while on room air per Kaylan, Respiratory Therapist.
--- NOTE | 2022-05-02 12:59 | PC.NURSE ---
Called Guy and she stated she was going to pick patient up from hospital. Guy asked to be called once oxygen tank was delivered as patient is a covid patient and Guy cannot wait in room.
--- NOTE | 2022-05-04 14:55 | CARE MANAGER ---
Attempted to contact patient. Spoke with person at number on file who states patient is down in her little building , but she is doing better. She still has a cough, but seems to be improved. JASSON Barros
== END 2022-05-02 15:00 | disposition home or self-care (01) | DRG 871 ==
LOC: ER 21:40 → 2ND 04-28 00:33 → ICU 04-29 11:23
PROVIDERS: Nurse Practitioner Family; Admitting Provider Emergency Medicine; Emergency Provider Emergency Medicine; PCP Family Medicine; Visit Provider Family Medicine
DX: A41.9 Sepsis, unspecified organism (principal); J12.82 Pneumonia due to coronavirus disease 2019; R65.21 Severe sepsis with septic shock; U07.1 COVID-19; J44.0 Chronic obstructive pulmonary disease with (acute) lower respiratory infection; I50.9 Heart failure, unspecified; E03.9 Hypothyroidism, unspecified; F17.210 Nicotine dependence, cigarettes, uncomplicated; I65.23 Occlusion and stenosis of bilateral carotid arteries; M19.90 Unspecified osteoarthritis, unspecified site; F17.200 Nicotine dependence, unspecified, uncomplicated; E87.6 Hypokalemia; G40.909 Epilepsy, unspecified, not intractable, without status epilepticus; F03.90 Unspecified dementia, unspecified severity, without behavioral disturbance, psychotic disturbance, mood disturbance, and anxiety
CPT/HCPCS: 36415; 51702; 71045; 71275; 80048; 80053; 81001; 82150; 82803; 83605; 83690; 83735; 83880; 84145; 84450; 84460; 84484; 85007; 85025; 85651; 86140; 87040; 87070; 87077; 87086; 87088; 87186; 87205; 93005; 93306; 94640; 94760; 94761; 99285; C9803; J0456; J0696; Q9967; U0003; U0005

== ENCOUNTER 2022-07-12 11:48 | Emergency (ER) | payer MEDICARE, SELFPAY ==
[2022-07-12 11:51] VITALS: BP 165/84; PULSE 79; RESP 16; TEMP 36.8; O2SAT 94; BMI 21.9
[2022-07-12 12:00] VITALS: BP 185/83; PULSE 61; RESP 20; O2SAT 100
--- NOTE | 2022-07-12 12:00 | HMH.EDGENADL ---
Discharge Plan Disposition Patient Disposition: Home, Self-Care Chief Complaint: Weakness Prescriptions Prescriptions: No Action albuterol sulfate 90 mcg/actuation HFA aerosol inhaler 2 puff IH QIDP PRN (Reason: Shortness Of Breath) Qty: 8.5 10RF hydrocodone-acetaminophen 7.5-325 mg tablet 1 tab PO DAILYP PRN (Reason: Moderate Pain) Qty: 30 0RF levetiracetam 750 mg tablet 750 mg PO BID Qty: 180 3RF levothyroxine 50 mcg tablet 50 mcg PO DAILY Qty: 90 3RF lisinopril 5 mg tablet 5 mg PO DAILY Qty: 90 3RF Hold Instructions: Resume on 05/06/22. sertraline 25 mg tablet 25 mg PO DAILY Qty: 90 3RF prednisone 10 mg tablet 10 mg PO DAILY Qty: 20 0RF metoprolol succinate 50 MG tablet extended release 24 hr 50 mg PO DAILY Hold Instructions: Resume on 05/06/22. levofloxacin 750 MG tablet 750 mg PO DAILY Qty: 10 0RF Referrals Follow up/Referrals: Provider,Referral, MD [Primary Care Provider] - See instructions Clinical Impressions Clinical Impression: Altered mental status, Dehydration, Acute hyponatremia Instructions Patient Instructions: DI for Altered Mental Status, DI for Hyponatremia, DI for Dehydration -- Adult Print Language Print Language: Trinidadian Discharge ED Provider: Wilmer Meyer General Adult HPI General Chief complaint: Weakness Stated complaint: ams Time Seen by Provider: 07/12/22 12:00 Mode of Arrival: EMS Source of Information: Patient and EMS Limitations: No Limitations Description of Symptoms (Recalled from ER Triage Doc. by RN): EMS states that pt was found by family in her bed at home passed out and low O2. Family advises EMS that pt went fishing yesterday and she may be dehydrated . Pt c/o bilateral hip pain and pain whenever touched or moved. Family advises EMS that pt is currently waiting on a hip replacement and this pain is chronic. Pt laying in bed with eyes closed, arousable to voice and able to answer questions. History of Present Illness HPI narrative: 81-year-old female, past medical history of hypokalemia, hypothyroidism, hypertension, seizure disorder on Keppra, chronic hip pain, awaiting hip replacement currently taking [place] for this. She is brought in by EMS due to altered mental status. Reportedly she had gone fishing yesterday and they were concerned about dehydration. She is reportedly not at her baseline mental status, is awake and answers appropriately to person and place but does seem somewhat listless, exhibits pain with any movement in the hips bilaterally. Other history otherwise limited Related Data Home Medications Medication Instructions Recorded Confirmed metoprolol succinate 50 mg 50 mg PO DAILY Hypertension 04/27/22 07/09/22 tablet,extended release 24 hr Previous Rx's Medication Instructions Recorded levofloxacin 750 mg tablet 750 mg PO DAILY #10 tabs 05/02/22 prednisone 10 mg tablet 10 mg PO DAILY Breathing problems 06/18/22 #20 tabs albuterol sulfate 90 mcg/actuation 2 puff inhalation QIDP PRN 07/09/22 aerosol inhaler Shortness Of Breath #8.5 grams hydrocodone 7.5 mg-acetaminophen 1 tab PO DAILYP PRN Moderate Pain 07/09/22 325 mg tablet #30 tabs levetiracetam 750 mg tablet 750 mg PO BID SEIZURES #180 tabs 07/09/22 levothyroxine 50 mcg tablet 50 mcg PO DAILY thyroid #90 tabs 07/09/22 lisinopril 5 mg tablet 5 mg PO DAILY Hypertension #90 tabs 07/09/22 sertraline 25 mg tablet 25 mg PO DAILY MOOD #90 tabs 07/09/22 Allergies Allergy/AdvReac Type Severity Reaction Status Date / Time No Known Allergies Allergy Verified 07/09/22 14:59 [facility] ON LICENSE OF [facility] Social History Smoking Status: Current every day smoker tobacco type: cigarettes packs per day: 1 alcohol intake: never substance use type: denies use current occupational status: retired Travel in the last 8 weeks: None housing: house ROS Obtained: Yes unobtainable due to mental s
--- NOTE | 2022-07-12 12:01 | XR_ITS ---
FINAL REPORT CLINICAL HISTORY: SOB/CP COMPARISON: May 01, 2022 FINDINGS: The heart size is normal. The mediastinum is normal. There are mild chronic changes in the lung bases. The previous right midlung airspace opacity has resolved. There is a questionable cavitary focus in the right mid lung measuring 3.3 cm. There are no pleural effusions. There is no pneumothorax. There is no osseous abnormality. IMPRESSION: Questionable cavitary focus in the right mid lung. Reviewed, Interpreted and Dictated by Rahat Neri MD Transcribed by Abdifatah Ang Authenticated and [facility]
--- NOTE | 2022-07-12 12:24 | ECG_ITS ---
APPROVED REPORT Exam: Resting ECG HR:74 bpm ECG Measurements Heart Rate 74 AXES NM 176 P 66 QRSd 101 QRS 55 QT 413 T 22 QTc 441 Conclusion SINUS RHYTHM POSSIBLE LEFT ATRIAL ENLARGEMENT [-0.1mV P-WAVE IN V1/V2] PROBABLE INFERIOR MYOCARDIAL INFARCTION , PROBABLY OLD [35 ms Q WAVE IN II/aVF] ABNORMAL ECG UNCONFIRMED REPORT Electronically signed by : José Corrigan MD 07/12/2022 15:12:11
[2022-07-12 12:30] VITALS: BP 189/96; PULSE 73; RESP 20; O2SAT 99
[2022-07-12 12:33] LABS: Coronavirus 19, PCR Not Detected (NotDetected); Influenza A, PCR Not Detected (NotDetected); Influenza B, PCR Not Detected (NotDetected)
[2022-07-12 12:41] LABS: Microscopic, Urine URINE MICROSCOPIC (MICROSCOPIC)
[2022-07-12 12:41] LABS: Chloride 90 mmol/L (98-107)
[2022-07-12 12:42] LABS: Potassium 3.7 mmoL/L (3.5-5.1); Sodium 130 mmol/L (136-145)
[2022-07-12 12:44] LABS: Alanine Aminotransferase 17 U/L (12-78); Ammonia < 9 umol/L (9-30); Aspartate Amino Transferase 39 U/L (14-36); Blood Urea Nitrogen 11 mg/dl (7-17); Creatinine Clearance Estimated 39 mL/min (50-200); Estimated Glomerular Filt Rate 96 ml/min (>60); GFR (African American) 117 ML/MIN (>60)
[2022-07-12 12:45] LABS: Albumin Level 4.6 g/dl (3.5-5.0); Albumin/Globulin Ratio 1.6 (1.1-1.8); Alkaline Phosphatase 121 U/L (38-126); Anion Gap 14.7 mEq/L (5-15); Bilirubin,Total 1.7 mg/dl (0.2-1.3); Calcium 8.8 mg/dl (8.4-10.2); Carbon Dioxide 29 mmol/L (22.0-30.0); Globulin 2.9 g/dL (1.3-3.2); Glucose 94 mg/dl (74-100); Magnesium 1.9 mg/dl (1.6-2.3); Total Protein,Serum 7.5 g/dl (6.3-8.2)
--- NOTE | 2022-07-12 12:45 | PC.NURSE ---
Edwin Salmeron updated family on pt status
[2022-07-12 12:50] LABS: Basophils # 0.1 K/mm3 (0-0.2); Basophils % 0.6 % (0.1-2.0); Eosinophils % 0.3 % (0.1-12.0); Hematocrit 49.3 % (37.0-47.0); Hemoglobin 16.5 g/dL (12.2-16.2); Lymphocytes # 1.1 K/mm3 (0.7-4.5); Lymphocytes % 10.3 % (10-50); Mean Corpuscular HGB Conc 33.4 g/dL (31.8-35.4); Mean Corpuscular Hemoglobin 29.6 pg (27.0-31.2); Mean Corpuscular Volume 88.8 fl (81-99); Monocytes # 0.8 K/mm3 (0.1-1.0); Monocytes % 7.2 % (1.7-9.3); Neutrophils % 81.5 % (37.0-80.0); Platelet Count 231 K/mm3 (142-424); Red Blood Count 5.56 M/mm3 (4.20-5.40); Red Cell Distribution Width 15.7 % (11.5-17.5)
[2022-07-12 12:51] LABS: Appearance,Urine CLEAR (Clear); Bilirubin,Urine Negative (Negative); Blood, Urine 2+ (Negative); Color,Urine YELLOW (Yellow); Glucose,Urine (UA) Negative (Negative); Ketones,Urine Negative (Negative); Leukocyte Esterase,Urine Negative (Negative); Nitrate,Urine Negative (Negative); Protein,Urine Negative (Negative); Specific Gravity, Urine 1.015 (1.005-1.030); Urobilinogen,Urine 0.2 EU/dl (0.2)
[2022-07-12 12:57] LABS: Troponin I 0.02 ng/ml (0.00-0.034)
[2022-07-12 13:00] VITALS: BP 198/87; PULSE 72; RESP 20; O2SAT 98
[2022-07-12 13:10] LABS: Bacteria,Urine Trace /lpf; Squamous Epithelial Cell,Urine Occasional #/hpf (0-5)
[2022-07-12 13:16] LABS: Thyroid Stimulating Hormone 3.28 uIU/mL (0.465-4.68)
[2022-07-12 13:30] VITALS: BP 184/90; PULSE 75; RESP 22; O2SAT 98
--- NOTE | 2022-07-12 13:52 | PC.NURSE ---
placed call to family member for pt transport
[2022-07-12 14:45] VITALS: BP 180/83; PULSE 75; RESP 18; TEMP 36.9; O2SAT 99
== END 2022-07-12 14:45 | disposition home or self-care (01) ==
PROVIDERS: Emergency Provider Emergency Medicine
DX: R53.1 Weakness (principal); R41.82 Altered mental status, unspecified; E87.1 Hypo-osmolality and hyponatremia; E86.0 Dehydration; M25.552 Pain in left hip; M25.551 Pain in right hip
CPT/HCPCS: 71045; 80053; 81001; 82140; 83735; 84443; 84484; 85025; 93005; 96360; 99284; C9803; U0003; U0005

== ENCOUNTER 2023-07-19 12:25 | Emergency (ER) | payer MEDICARE, SELFPAY ==
[2023-07-19] VITALS (8 sets, daily range): BP systolic 120–168; BP diastolic 58–106; PULSE 69–77; RESP 12–19; TEMP 36.4–36.7; O2SAT 94–99; BMI 22.4
--- NOTE | 2023-07-19 12:29 | ECG_ITS ---
APPROVED REPORT Exam: Resting ECG HR:71 bpm ECG Measurements Heart Rate 71 AXES VT 182 P 74 QRSd 95 QRS 73 QT 423 T 64 QTc 445 Conclusion SINUS RHYTHM WITH OCCASIONAL VENTRICULAR PREMATURE COMPLEXES POSSIBLE LEFT ATRIAL ENLARGEMENT [-0.1mV P-WAVE IN V1/V2] POSSIBLE INFERIOR MYOCARDIAL INFARCTION , PROBABLY OLD [30 ms Q WAVE IN II/aVF] BORDERLINE ECG UNCONFIRMED REPORT Electronically signed by : José Corrigan MD 07/19/2023 19:59:40
--- NOTE | 2023-07-19 12:51 | PC.NURSE ---
DR. Calderon at BS for pt eval
--- NOTE | 2023-07-19 13:08 | XR_ITS ---
FINAL REPORT CLINICAL HISTORY: acute on chronic pain after fall FINDINGS: AP, oblique, and lateral views of the left ankle were obtained. There is no prior exam for comparison. There is no fracture or dislocation. The ankle mortise is intact. Soft tissues are normal. IMPRESSION: No acute osseous abnormality of the left ankle. Reviewed, Interpreted and Dictated by Damaris Ley MD Transcribed by Francine Hyman Authenticated and [facility]
--- NOTE | 2023-07-19 13:08 | XR_ITS ---
FINAL REPORT CLINICAL HISTORY: acute on chronic pain after fall FINDINGS: AP and lateral views of the left forearm are obtained. There is no prior exam for comparison. There is no acute osseous abnormality of the left forearm. There is no joint effusion of the elbow. The soft tissues appear normal. IMPRESSION: No acute osseous abnormality of the left forearm. Reviewed, Interpreted and Dictated by Damaris Ley MD Transcribed by Francine Hyman Authenticated and [facility]
--- NOTE | 2023-07-19 13:08 | XR_ITS ---
FINAL REPORT CLINICAL HISTORY: acute on chronic pain after fall FINDINGS: AP, oblique, and lateral views of the left elbow were obtained. There is no prior exam for comparison. There is no acute fracture or dislocation. Joint space is preserved. No joint effusion is identified. IMPRESSION: No acute osseous abnormality of the right elbow. Reviewed, Interpreted and Dictated by Damaris Ley MD Transcribed by Francine Hyman Authenticated and [facility]
--- NOTE | 2023-07-19 13:08 | XR_ITS ---
FINAL REPORT CLINICAL HISTORY: acute on chronic pain after fall FINDINGS: AP and frog leg views of the left hip were obtained. There is no prior exam for comparison. There is no acute fracture or dislocation. There is degenerative disease of the hips bilaterally, asymmetric to the left. Soft tissues are within normal limits. IMPRESSION: No acute osseous abnormality of the left hip. If pain persists, MR is recommended. Reviewed, Interpreted and Dictated by Damaris Ley MD Transcribed by Francine Hyman Authenticated and . [facility]
--- NOTE | 2023-07-19 13:08 | XR_ITS ---
FINAL REPORT CLINICAL HISTORY: acute on chronic pain after fall FINDINGS: AP, oblique, and lateral views of the left hand were obtained. There is no prior exam for comparison. There is no acute fracture of the left hand. There is multi joint degenerative disease. The soft tissues are normal. IMPRESSION: No acute osseous abnormality of the left hand. Reviewed, Interpreted and Dictated by Damaris Ley MD Transcribed by Francine Hyman Authenticated and [facility]
--- NOTE | 2023-07-19 13:08 | XR_ITS ---
FINAL REPORT CLINICAL HISTORY: acute on chronic pain after fall FINDINGS: 2 views of the left shoulder were obtained. There is no prior exam for comparison. There is no fracture or dislocation. The humeral head is high-riding, rotator cuff injury is not excluded. There is multi joint degenerative disease. Soft tissues are normal. IMPRESSION: Humeral head is high-riding, rotator cuff injury is not excluded. Reviewed, Interpreted and Dictated by Damaris Ley MD Transcribed by Francine Hyman Authenticated and [facility]
--- NOTE | 2023-07-19 13:08 | XR_ITS ---
FINAL REPORT CLINICAL HISTORY: acute on chronic pain after fall FINDINGS: Two views of the left humerus were obtained. No priors are available for comparison. There is no fracture or dislocation. No soft tissue abnormality identified. IMPRESSION: No acute osseous abnormality. Reviewed, Interpreted and Dictated by Damaris Ley MD Transcribed by Francine Hyman Authenticated and [facility]
--- NOTE | 2023-07-19 13:08 | XR_ITS ---
FINAL REPORT CLINICAL HISTORY: acute on chronic pain after fall FINDINGS: AP, oblique, and lateral views of the left wrist were obtained. There is no prior exam for comparison. There is no acute fracture or dislocation. There is widening of the scapholunate distance most consistent with scapholunate ligament tear. There is degenerative joint disease. The soft tissues are normal. IMPRESSION: Widening of the scapholunate distance most consistent with scapholunate ligament tear. Reviewed, Interpreted and Dictated by Damaris Ley MD Transcribed by Francine Hyman Authenticated and [facility]
--- NOTE | 2023-07-19 13:08 | XR_ITS ---
FINAL REPORT CLINICAL HISTORY: acute on chronic pain after fall FINDINGS: Two views of the left femur were obtained. There is no prior for comparison. There is no fracture or dislocation. The left hip was not included in the field of view. There is degenerative disease of the knee. IMPRESSION: No acute osseous abnormality of the left femur. Reviewed, Interpreted and Dictated by Damaris Ley MD Transcribed by Francine Hyman Authenticated and [facility]
--- NOTE | 2023-07-19 13:11 | XR_ITS ---
FINAL REPORT CLINICAL HISTORY: left chest acute on chronic pain after fall COMPARISON: 07/12/2022 FINDINGS: PA and lateral views of the chest were obtained. The cardiac and mediastinal silhouettes are within normal limits. There are bilateral interstitial opacities which are new since previous, favor mild edema. Note is made of emphysema. There is no pleural effusion or pneumothorax. No acute osseous abnormality is identified. IMPRESSION: New bilateral interstitial opacities, favor mild edema. Reviewed, Interpreted and Dictated by Damaris Ley MD Transcribed by Francine Hyman Authenticated and [facility]
--- NOTE | 2023-07-19 13:20 | PC.NURSE ---
Pt assisted to [facility] without complications
--- NOTE | 2023-07-19 13:22 | HMH.EDGENADL ---
Discharge Plan Disposition Patient Disposition: Home, Self-Care Chief Complaint: Fall Prescriptions Prescriptions: No Action albuterol sulfate 90 mcg/actuation HFA aerosol inhaler 2 puff IH QIDP PRN (Reason: Shortness Of Breath) Qty: 8.5 10RF hydrocodone-acetaminophen 7.5-325 mg tablet 1 tab PO DAILYP PRN (Reason: Moderate Pain) Qty: 30 0RF levetiracetam 750 mg tablet 750 mg PO BID Qty: 180 3RF levothyroxine 50 mcg tablet 50 mcg PO DAILY Qty: 90 3RF lisinopril 5 mg tablet 5 mg PO DAILY Qty: 90 3RF Hold Instructions: Resume on 05/06/22. memantine 7 mg capsule,sprinkle,ER 24hr 7 mg PO DAILY Qty: 90 3RF prednisone 10 mg tablet 10 mg PO DAILY Qty: 90 3RF sertraline 25 mg tablet 25 mg PO DAILY Qty: 90 3RF Referrals Follow up/Referrals: Misti Velazquez APRN [Primary Care Provider] - See instructions Torres Loo DO [Staff Physician] - See instructions Activity Restrictions/Add. Instructions Additional Instructions/Restrictions: Call your family doctor to establish care for this visit to the emergency department and schedule follow-up within 48 hours to ensure improvement. If you have any worsening of your condition or any other concerning signs or symptoms, return to the emergency department or your primary care doctor for further evaluation. Dr. Loo, orthopedics, listed here. Follow-up with him regarding your scapholunate ligamentous injury (sprain). Wear brace at all times Clinical Impressions Clinical Impression: Left wrist sprain, Fall Discharge ED Provider: David Calderon General Adult HPI General Chief complaint: Fall Stated complaint: fall, LLE pain, L shoulder pain Time Seen by Provider: 07/19/23 12:26 Mode of Arrival: EMS Source of Information: Patient Limitations: No Limitations Description of Symptoms (Recalled from ER Triage Doc. by RN): pt had fall tuesday, trip and fall, -LOC. pt states that she tripped and fell. left shoulder, left hip pain. + blood thinner. hx of htn, smoker. History of Present Illness HPI narrative: 82-year-old female history of rheumatoid arthritis currently on daily prednisone, hypothyroidism, [place] presenting with pain. Patient states that she fell 2 days prior to arrival. Has been walking since that time. Fell from standing after tripping on gravel, landed on her left side. Having acute on chronic pain in her left wrist, forearm, elbow, humerus, shoulder, ribs, hip, ankle. Has not taken anything for the pain. States pain is moderate, does not radiate, does not feel much different than her typical pain, but left shoulder pain is acutely worse. Related Data Previous Rx's Medication Instructions Recorded albuterol sulfate 90 mcg/actuation 2 puff inhalation QIDP PRN 02/01/23 aerosol inhaler Shortness Of Breath #8.5 grams hydrocodone 7.5 mg-acetaminophen 1 tab PO DAILYP PRN Moderate Pain 02/01/23 325 mg tablet #30 tabs levetiracetam 750 mg tablet 750 mg PO BID SEIZURES #180 tabs 02/01/23 levothyroxine 50 mcg tablet 50 mcg PO DAILY thyroid #90 tabs 02/01/23 lisinopril 5 mg tablet 5 mg PO DAILY Hypertension #90 tabs 02/01/23 memantine 7 mg capsule 7 mg PO DAILY #90 ea 02/01/23 sprinkle,extended release 24hr prednisone 10 mg tablet 10 mg PO DAILY #90 tabs 02/01/23 sertraline 25 mg tablet 25 mg PO DAILY MOOD #90 tabs 02/01/23 Allergies Allergy/AdvReac Type Severity Reaction Status Date / Time No Known Allergies Allergy Verified 02/01/23 09:18 [facility] Disclaimer: The information contained in this section may have been updated after the patient was seen, as this information can be updated by other users. Medical History (Updated 07/19/23 @ 15:51 by David Calderon MD) Erosive osteoarthritis of multiple sites Social History Smoking Status: Current every day smoker tobacco type: cigarettes packs per day: 1 alcohol intake: never substance use type: denies use
--- NOTE | 2023-07-19 15:55 | PC.NURSE ---
yudelka angelese has been called which was her son Rubens at [phone]
== END 2023-07-19 16:45 | disposition home or self-care (01) ==
PROVIDERS: Emergency Provider Emergency Medicine; PCP Nurse Practitioner Family
DX: S63.502A Unspecified sprain of left wrist, initial encounter (principal); M25.512 Pain in left shoulder; M25.552 Pain in left hip; M06.9 Rheumatoid arthritis, unspecified; E03.9 Hypothyroidism, unspecified; I25.2 Old myocardial infarction; W01.0XXA Fall on same level from slipping, tripping and stumbling without subsequent striking against object, initial encounter; F17.210 Nicotine dependence, cigarettes, uncomplicated
CPT/HCPCS: 71046; 73030; 73060; 73080; 73090; 73110; 73130; 73502; 73552; 73610; 93005; 99285

== ENCOUNTER 2024-11-02 18:14 | Emergency (ER) | payer MEDICARE, MEDICAID, SELFPAY ==
--- NOTE | 2024-11-02 18:24 | CT_ITS ---
PROCEDURE INFORMATION: Exam: CTA Neck With Contrast Exam date and time: 11/02/2024 6:29 PM Age: 83 years old Clinical indication: Stroke-like symptoms; Other: Left side weakness; Additional info: Possible stroke TECHNIQUE: Imaging protocol: Computed tomographic angiography of the neck with contrast. Exam focused on the cervical segments of the vasculature. 3D rendering (Not supervised by radiologist): MIP and/or 3D reconstructed images were created by the technologist. Radiation optimization: All CT scans at this facility use at least one of these dose optimization techniques: automated exposure control; mA and/or kV adjustment per patient size (includes targeted exams where dose is matched to clinical indication); or iterative reconstruction. Contrast material: ISO 370; Contrast volume: 80 ml; Contrast route: INTRAVENOUS (IV); COMPARISON: CT ANGIO HEAD 11/02/2024 6:29 PM FINDINGS: Right common carotid artery: No stenosis. No dissection or occlusion. Right internal carotid artery: No stenosis of the extracranial segment. No dissection or occlusion. Right external carotid artery: No occlusion or stenosis of the origin. Left common carotid artery: No stenosis. No dissection or occlusion. Left internal carotid artery: No stenosis of the extracranial segment. No dissection or occlusion. Left external carotid artery: No occlusion or stenosis of the origin. Right vertebral artery: No stenosis. No dissection or occlusion. Left vertebral artery: No stenosis. No dissection or occlusion. Soft tissues: Normal. No significant soft tissue swelling. Bones/joints: No acute fracture. Lungs: COPD with upper lobe emphysematous changes. IMPRESSION: No evidence of carotid stenosis or vertebrobasilar insufficiency. REFERENCES: NASCET CRITERIA. The degree of stenosis in the cervical segment of the internal carotid artery is based on NASCET criteria. Normal is no stenosis. Mild is less than 50% stenosis. Moderate is 50-69% stenosis. Severe is 70% to 99% stenosis. Total occlusion is no detectable patent lumen.
--- NOTE | 2024-11-02 18:24 | CT_ITS ---
PROCEDURE INFORMATION: Exam: CT Head Without Contrast Exam date and time: 11/02/2024 6:27 PM Age: 83 years old Clinical indication: Stroke-like symptoms; Other: Left side weakness; Additional info: Possible stroke TECHNIQUE: Imaging protocol: Computed tomography of the head without contrast. Radiation optimization: All CT scans at this facility use at least one of these dose optimization techniques: automated exposure control; mA and/or kV adjustment per patient size (includes targeted exams where dose is matched to clinical indication); or iterative reconstruction. Other technique: STROKE PROTOCOL was implemented. COMPARISON: No relevant prior studies available. FINDINGS: Brain: There is a irregular shaped area of encephalomalacia along the anterior margin left temporal lobe presumed secondary to old infarct. There are vague areas of decreased attenuation throughout the periventricular white matter bilaterally secondary to chronic microvascular changes. There are no areas of mass effect edema or midline shift. No evidence of intracranial hemorrhage. There is generalized age-related cerebral volume loss. Cerebral ventricles: Unremarkable for age. Paranasal sinuses: Visualized sinuses are unremarkable. No fluid levels. Mastoid air cells: Visualized mastoid air cells are well aerated. Bones: Unremarkable. No acute fracture. Soft tissues: Unremarkable. IMPRESSION: 1. No acute intracranial abnormalities. 2. 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 ASSESSMENT: ASPECTS (Kristy Stroke Program Early CT Score) is 10.
--- NOTE | 2024-11-02 18:24 | CT_ITS ---
PROCEDURE INFORMATION: Exam: CTA Head With Contrast, Arteriography Exam date and time: 11/02/2024 6:29 PM Age: 83 years old Clinical indication: Stroke-like symptoms; Other: Left side weakness; Additional info: Possible stroke TECHNIQUE: Imaging protocol: Computed tomographic angiography of the head with contrast. Exam focused on the arteries. 3D rendering (Not supervised by radiologist): MIP and/or 3D reconstructed images were created by the technologist. Radiation optimization: All CT scans at this facility use at least one of these dose optimization techniques: automated exposure control; mA and/or kV adjustment per patient size (includes targeted exams where dose is matched to clinical indication); or iterative reconstruction. Contrast material: ISO 370; Contrast volume: 80 ml; Contrast route: INTRAVENOUS (IV); COMPARISON: CT HEAD/BRAIN WO CON 11/02/2024 6:27 PM FINDINGS: ANTERIOR CIRCULATION: Right internal carotid artery: Intracranial segment is patent with no significant stenosis. No aneurysm. Right middle cerebral artery: No occlusion or significant stenosis. No aneurysm. Right anterior cerebral artery: No occlusion or significant stenosis. No aneurysm. Left internal carotid artery: Intracranial segment is patent with no significant stenosis. No aneurysm. Left middle cerebral artery: No occlusion or significant stenosis. No aneurysm. Left anterior cerebral artery: No occlusion or significant stenosis. No aneurysm. POSTERIOR CIRCULATION: Right vertebral artery: No occlusion or significant stenosis. No aneurysm. Left vertebral artery: No occlusion or significant stenosis. No aneurysm. Basilar artery: No occlusion or significant stenosis. No aneurysm. Right posterior cerebral artery: No occlusion or significant stenosis. No aneurysm. Left posterior cerebral artery: No occlusion or significant stenosis. No aneurysm. Brain: No intracranial hemorrhage, mass effect, or midline shift. Encephalomalacia left anterior temporal lobe from old infarct. Cerebral ventricles: No ventriculomegaly. Bones/joints: Unremarkable. No acute fracture. Soft tissues: Unremarkable. IMPRESSION: No large vessel occlusion or significant stenosis.
--- NOTE | 2024-11-02 18:25 | ED_ITS ---
Discharge Plan Disposition Chief Complaint: Neuro Symptoms/Deficit Prescriptions Prescriptions: No Action albuterol sulfate 90 mcg/actuation HFA aerosol inhaler 2 puff IH QIDP PRN (Reason: Shortness Of Breath) Qty: 8.5 10RF hydrocodone-acetaminophen 7.5-325 mg tablet 1 tab PO DAILYP PRN (Reason: Moderate Pain) Qty: 30 0RF levetiracetam 750 mg tablet 750 mg PO BID Qty: 180 3RF levothyroxine 50 mcg tablet 50 mcg PO DAILY Qty: 90 3RF lisinopril 5 mg tablet 5 mg PO DAILY Qty: 90 3RF memantine 7 mg capsule,sprinkle,ER 24hr 7 mg PO DAILY Qty: 90 3RF prednisone 10 mg tablet 10 mg PO DAILY Qty: 90 3RF sertraline 25 mg tablet 25 mg PO DAILY Qty: 90 3RF Referrals Follow up/Referrals: Misti Velazquez APRN [Primary Care Provider] - See instructions Stand Alone Forms Stand Alone Forms: Transfer Record - ED Print Language Print Language: Setswana Discharge ED Provider: Yoni Carrion General Adult HPI General Chief complaint: Neuro Symptoms/Deficit Stated complaint: left sided pain Time Seen by Provider: 11/02/24 18:23 History of Present Illness HPI narrative: Patient presents for evaluation of reported left-sided paresthesias in left upper and left lower extremity. Patient has history of dementia, subsequently, as well as secondary to acuity of patient's condition, history from patient herself somewhat limited at this time. Per family who was contacted over the phone, last known normal approximately 7 PM yesterday. Patient was noted, approximately at 4 PM today, to be describing left upper and left lower extremity paresthesias and was acting different than normal. Further details were not provided by family. [id number] glucose within normal limits prior to arrival. No known blood thinner usage. Please note that above description of symptoms, in this electronic medical record under categorization of recalled from ER triage doctor by RN are reflective of an initial nursing assessment, however, is not reflective of my full history and physical exam that was personally taken and clarified. Consequentially, this preceding description of symptoms, which may include the patient's categorized chief complaint in the EMR, do not reflect my personal clinical impression, and the ultimate description of history of present illness and patient stated complaints should be deferred to this section of the note. Unless stated otherwise or congruent with this section of the note, additional signs, symptoms, or incongruence should be interpreted as inaccurate with my clinical impression. Related Data Previous Rx's ?Medication ?Instructions ?Recorded albuterol sulfate 90 mcg/actuation 2 puff inhalation QIDP PRN 02/01/23 aerosol inhaler Shortness Of Breath #8.5 grams hydrocodone 7.5 mg-acetaminophen 1 tab PO DAILYP PRN Moderate Pain 02/01/23 325 mg tablet #30 tabs levetiracetam 750 mg tablet 750 mg PO BID SEIZURES #180 tabs 02/01/23 levothyroxine 50 mcg tablet 50 mcg PO DAILY thyroid #90 tabs 02/01/23 lisinopril 5 mg tablet 5 mg PO DAILY Hypertension #90 tabs 02/01/23 memantine 7 mg capsule 7 mg PO DAILY #90 ea 02/01/23 sprinkle,extended release 24hr prednisone 10 mg tablet 10 mg PO DAILY #90 tabs 02/01/23 sertraline 25 mg tablet 25 mg PO DAILY MOOD #90 tabs 02/01/23 Allergies Allergy/AdvReac Type Severity Reaction Status Date / Time No Known Allergies Allergy Verified 02/01/23 09:18 [facility] Disclaimer: The information contained in this section may have been updated after the patient was seen, as this information can be updated by other users. Medical History (Updated 07/19/23 @ 15:51 by David Calderon MD) Erosive osteoarthritis of multiple sites Social History Smoking Status: Unknown if ever smoked alcohol intake: never substance use type: denies use current occupational status: retired Travel in the last 8 weeks: None housing: house Have you lived/traveled outside [place] in past 30 days?: No Contact w/someone who lives/traveled outside [place] past 30 days?: No Exposure to someone with infectious disease in past 14 days?: No Do you have a fever (greater than 100.4 F or 38 C)?: No Have you tested positive for COVID-19: No Exposed to someone with COVID-19 in past 14 days?: No Do you have a sore throat?: No Do you have a cough?: No Do you have any weakness?: No Do you have any diarrhea?: No Are you experiencing any unusual bleeding?: No Do you have any muscle aches/pain?: No Do you have any abdominal pain?: Yes Are you experiencing loss of taste or smell?: No Other Medical History Have you received the Flu Vaccine for this season: No Have you received the Pneumonia Vaccine: Yes ROS Obtained: Yes other As per HPI Physical Exam General General appearance: alert Head Head exam: atraumatic and normocephalic Eye Eye exam: Present normal appearance Neck Neck exam: Present normal inspection Chest Chest inspection: Present normal inspection and symmetric chest wall rise Respiratory Respiratory exam: Absent respiratory distress Cardiovascular Cardiovascular exam: Present regular rate and normal rhythm Abdominal Exam Abdominal exam: Present soft Neurological Exam Neurological exam: Present alert Psychiatric Psychiatric exam: Present normal affect and normal mood Skin Skin exam: Present warm and dry Other Other exam information: No cranial nerve deficit appreciated. Patient reports decrease sensation along entirety of left hemibody. No sensory extinction. No overt dysarthria or aphasia. Concern for left upper extremity limb ataxia. Motor function symmetric bilaterally in upper and lower extremities. Concern for left upper extremity inattention, patient requires serial redirection to left upper extremity in order to follow commands. No visual field deficit. No external evidence of trauma above clavicles. Medical Decision Making Medical Records Medical records reviewed: Yes I reviewed the patient's medical records. Screening: Per USPSTF and CDC recommendations, given the prevalence of disease in our region, it is our hospital?s policy to screen for HIV and viral Hepatitis for all patients aged 18 and over and those with ongoing risk factors. Alex Inquiry Pt receiving controlled substance: No Vital Signs: 11/02/24 18:34 11/02/24 19:00 11/02/24 19:30 Temperature 97.5 F L Temperature Source Oral Pulse Rate 79 77 Pulse Rate [Right Brachial] 86 Respiratory Rate 18 Blood Pressure 154/84 H 142/79 H Blood Pressure [Right Arm] 175/94 H Blood Pressure Mean [Right Arm] 121 Blood Pressure Source [Right Arm] Automatic Cuff Blood Pressure Position [Right Arm] Sitting 02 Sat by Pulse Oximetry 96 91 L 91 L Oxygen Delivery Method Room Air Lab Data Lab Results 11/02/24 18:15: WBC 13.1 H, RBC 5.34, Hgb 16.3 H, Hct 46.3, MCV 86.7, MCH 30.5, MCHC 35.2, RDW 14.2, Plt Count 176, MPV 9.9, Neut % (Auto) 71.6, Lymph % (Auto) 18.2, [place] % (Auto) 8.6, Eos % (Auto) 0.6, Baso % (Auto) 0.5, Neut # (Auto) 9.4 H, Lymph # (Auto) 2.4, [place] # (Auto) 1.1 H, Eos # (Auto) 0.1, Baso # (Auto) 0.1, PT 12.1, INR 1.09, APTT 24.6, Sodium 127 L, Potassium 3.6, Chloride 97 L, Carbon Dioxide 27, Anion Gap 6.6, BUN 20 H, Creatinine 0.60, Estimated GFR 96, Est GFR ( Amer) 116, Glucose 96, Calcium 8.7, Total Bilirubin 0.5, AST 30, ALT 18, Alkaline Phosphatase 81, Troponin I 0.01, Total Protein 6.2 L, Albumin 3.8, Globulin 2.4, Albumin/Globulin Ratio 1.6, Triglycerides 113, Cholesterol 190, LDL Cholesterol Direct 112.55, VLDL Cholesterol 23, HDL Cholesterol 54, Cholesterol/HDL Ratio 3.5, Plasma/Serum Alcohol < 10, HIV Ag/Ab Combo Qual Negative 11/02/24 18:15 11/02/24 18:15 Orders (Tests/Meds): ED MEDICATIONS Generic Name Dose Route Start Last Admin Trade Name Freq PRN Reason Stop Dose Admin Sodium Chloride 10 ml 11/02/24 18:23 Sodium Chloride 0.9% 10ml Flush Syringe IV 12/02/24 18:22 NEEDED PRN Maintain IV Site Discontinued Medications Generic Name Dose Route Start Last Admin Trade Name Freq PRN Reason Stop Dose Admin Aspirin 81 mg 11/02/24 20:33 11/02/24 20:43 Aspirin Ec 81mg Tablet PO 11/02/24 20:34 81 mg ONCE ONE Administration Clopidogrel Bisulfate 300 mg 11/02/24 20:33 Clopidogrel 300mg Tablet PO 11/02/24 20:34 ONCE ONE Iopamidol 80 ml 11/02/24 18:27 11/02/24 18:28 Iopamidol-370 (76%);100ml Bottle IV 11/02/24 18:28 80 ml ONCE ONE Administration Sodium Chloride 50 ml 11/02/24 18:27 11/02/24 18:28 0.9 % Sodium Chloride 50 Ml Vial IV 11/02/24 18:28 50 ml ONCE ONE Administration Sodium Chloride 10 ml 11/02/24 18:27 11/02/24 18:28 Sodium Chloride 0.9% 10ml Syr (Rad Only) IV 11/02/24 18:28 10 ml ONCE ONE Administration ORDERS Category Date Time Status CT angio head Stat Cat Scan 11/02/24 18:[address] angio neck Stat Cat Scan 11/02/24 18:[address] head/brain wo con Stat Cat Scan 11/02/24 18:24 Completed Activated Partial Thrombo Time Stat Lab 11/02/24 18:15 Completed Complete Blood Count Auto Diff Stat Lab 11/02/24 18:15 Completed Comprehensive Metabolic Panel Stat Lab 11/02/24 18:15 Completed Drug Screen,Urine Stat Lab 11/02/24 18:24 Ordered Ethyl Alcohol Stat Lab 11/02/24 18:15 Completed HIV Combo Routine Lab 11/02/24 18:15 Completed Lipid Panel Stat Lab 11/02/24 18:15 Completed Prothrombin Time INR Stat Lab 11/02/24 18:15 Completed Troponin I Q3H Lab 11/02/24 21:30 Ordered Troponin I Q3H Lab 11/03/24 00:30 Ordered Troponin I Stat Lab 11/02/24 18:15 Completed Urinalysis and Microscopic Stat Lab 11/02/24 18:24 Ordered ECG Request Stat Y 11/02/24 18:24 Ordered Medical Decision Narrative: Patient with history and exam per above presenting for evaluation of left upper extremity paresthesias, concern on my exam for left hemibody inattention. Last known normal yesterday evening, NIH stroke scale at this time, within confines of limited exam secondary to patient's ability to comply with exam, 3. Patient scored points for decree sensation, limb ataxia, as well as inattention of left upper extremity. Again, baseline very difficult to ascertain from family over the phone. Diagnoses considered include stroke, intracranial hemorrhage secondary to trauma, although less likely given no external evidence of trauma on physical exam, differential also includes electrolyte abnormality, recrudescence of old stroke symptoms, TIA, among others ED workup and treatment included: ED MEDICATIONS Generic Name Dose Route Start Last Admin Trade Name Freq PRN Reason Stop Dose Admin Sodium Chloride 10 ml 11/02/24 18:23 Sodium Chloride 0.9% 10ml Flush Syringe IV 12/02/24 18:22 NEEDED PRN Maintain IV Site Discontinued Medications Generic Name Dose Route Start Last Admin Trade Name Nakul PRN Reason Stop Dose Admin Aspirin 81 mg 11/02/24 20:33 11/02/24 20:43 Aspirin Ec 81mg Tablet PO 11/02/24 20:34 81 mg ONCE ONE Administration Clopidogrel Bisulfate 300 mg 11/02/24 20:33 Clopidogrel 300mg Tablet PO 11/02/24 20:34 ONCE ONE Iopamidol 80 ml 11/02/24 18:27 11/02/24 18:28 Iopamidol-370 (76%);100ml Bottle IV 11/02/24 18:28 80 ml ONCE ONE Administration Sodium Chloride 50 ml 11/02/24 18:27 11/02/24 18:28 0.9 % Sodium Chloride 50 Ml Vial IV 11/02/24 18:28 50 ml ONCE ONE Administration Sodium Chloride 10 ml 11/02/24 18:27 11/02/24 18:28 Sodium Chloride 0.9% 10ml Syr (Rad Only) IV 11/02/24 18:28 10 ml ONCE ONE Administration ORDERS Category Date Time Status CT angio head Stat Cat Scan 11/02/24 18:[address] angio neck Stat Cat Scan 11/02/24 18:[address] head/brain wo con Stat Cat Scan 11/02/24 18:24 Completed Activated Partial Thrombo Time Stat Lab 11/02/24 18:15 Completed Complete Blood Count Auto Diff Stat Lab 11/02/24 18:15 Completed Comprehensive Metabolic Panel Stat Lab 11/02/24 18:15 Completed Drug Screen,Urine Stat Lab 11/02/24 18:24 Ordered Ethyl Alcohol Stat Lab 11/02/24 18:15 Completed HIV Combo Routine Lab 11/02/24 18:15 Completed Lipid Panel Stat Lab 11/02/24 18:15 Completed Prothrombin Time INR Stat Lab 11/02/24 18:15 Completed Troponin I Q3H Lab 11/02/24 21:30 Ordered Troponin I Q3H Lab 11/03/24 00:30 Ordered Troponin I Stat Lab 11/02/24 18:15 Completed Urinalysis and Microscopic Stat Lab 11/02/24 18:24 Ordered ECG Request Stat Y 11/02/24 18:24 Ordered Labs were independently interpreted by me, significant for leukocytosis to 13.1, sodium 127, no other acute findings Imaging was independently visualized and interpreted by me, significant for no acute obvious intracranial hemorrhage or large vessel disease Please refer to radiology report for full details. Patient will benefit from further workup and treatment for ongoing strokelike symptoms. She was accepted for admission to outside facility. Critical Care Critical Care Time Critical Care Time: No
[2024-11-02 18:26] LABS: Red Blood Count 5.34 M/mm3 (4.20-5.40); White Blood Count 13.1 K/mm3 (4.8-10.8)
[2024-11-02 18:27] LABS: Basophils % 0.5 % (0.1-2.0); Eosinophils # 0.1 K/mm3 (0.0-0.4); Eosinophils % 0.6 % (0.1-12.0); Hematocrit 46.3 % (37.0-47.0); Hemoglobin 16.3 g/dL (12.2-16.2); Lymphocytes # 2.4 K/mm3 (0.7-4.5); Lymphocytes % 18.2 % (10-50); Mean Corpuscular HGB Conc 35.2 g/dL (31.8-35.4); Mean Corpuscular Hemoglobin 30.5 pg (27.0-31.2); Mean Corpuscular Volume 86.7 fl (81-99); Mean Platelet Volume 9.9 fl (7.4-10.4); Monocytes # 1.1 K/mm3 (0.1-1.0); Monocytes % 8.6 % (1.7-9.3); Neutrophils # 9.4 K/mm3 (1.8-7.8); Neutrophils % 71.6 % (37.0-80.0); Platelet Count 176 K/mm3 (142-424); Red Cell Distribution Width 14.2 % (11.5-17.5)
[2024-11-02 18:28] LABS: Basophils # 0.1 K/mm3 (0-0.2)
[2024-11-02] MEDS: 0.9 % SODIUM CHLORIDE 50 ML VIAL IV (18:28)
[2024-11-02] MEDS: SODIUM CHLORIDE 0.9% 10ML SYR (RAD ONLY) 10 ML IV (18:28)
[2024-11-02] MEDS: IOPAMIDOL-370 (76%);100ML BOTTLE 80 ML IV (18:28)
--- NOTE | 2024-11-02 18:30 | PC.NURSE ---
pt is at ct
[2024-11-02 18:32] LABS: Albumin Level 3.8 g/dl (3.5-5.0); Chloride 97 mmol/L (98-107); Potassium 3.6 mmoL/L (3.5-5.1); Sodium 127 mmol/L (136-145)
[2024-11-02 18:34] VITALS: BP 175/94; PULSE 86; RESP 18; TEMP 36.4; O2SAT 96
[2024-11-02 18:34] LABS: Alanine Aminotransferase 18 U/L (12-78); Anion Gap 6.6 mEq/L (5-15); Aspartate Amino Transferase 30 U/L (14-36); Blood Urea Nitrogen 20 mg/dl (7-17); Carbon Dioxide 27 mmol/L (22.0-30.0); Estimated Glomerular Filt Rate 96 ml/min (>60); GFR (African American) 116 ML/MIN (>60)
--- NOTE | 2024-11-02 18:34 | PC.NURSE ---
pt arrived back to room from ct
[2024-11-02 18:35] LABS: Albumin/Globulin Ratio 1.6 (1.1-1.8); Alkaline Phosphatase 81 U/L (38-126); Bilirubin,Total 0.5 mg/dl (0.2-1.3); Calcium 8.7 mg/dl (8.4-10.2); Chol/HDL Ratio 3.5 (1-3.5); Cholesterol 190 mg/dl (140-200); Globulin 2.4 g/dL (1.3-3.2); Glucose 96 mg/dl (74-100); HDL Cholesterol 54 mg/dl (40-60); Total Protein,Serum 6.2 g/dl (6.3-8.2); Triglycerides 113 mg/dl (30-150); VLDL Cholesterol 23 mg/dL (0-40)
--- NOTE | 2024-11-02 18:37 | ECG_ITS ---
APPROVED REPORT Exam: Resting ECG HR:82 bpm ECG Measurements Heart Rate 82 AXES HI 196 P 71 QRSd 106 QRS 74 QT 389 T 61 QTc 428 Conclusion SINUS RHYTHM WITH OCCASIONAL VENTRICULAR PREMATURE COMPLEXES POSSIBLE LEFT ATRIAL ENLARGEMENT [-0.1mV P-WAVE IN V1/V2] PROBABLE INFERIOR MYOCARDIAL INFARCTION , PROBABLY OLD [35 ms Q WAVE IN II/aVF] ABNORMAL ECG UNCONFIRMED REPORT Electronically signed by : KELSEY MONTES, 11/04/2024 06:34:12
[2024-11-02 18:39] LABS: Activated Partial Thrombo Time 24.6 seconds (22.8-30.6); INR 1.09 (0.9-1.1); Prothrombin Time 12.1 seconds (10.1-12.5)
[2024-11-02 18:40] LABS: Ethyl Alcohol < 10 mg/dl (0-10)
[2024-11-02 18:46] LABS: Direct LDL Cholesterol 112.55 mg/dL (100-129)
[2024-11-02 18:55] LABS: Troponin I 0.01 ng/ml (0.00-0.034)
[2024-11-02 19:00] VITALS: BP 154/84; PULSE 79; O2SAT 91
[2024-11-02 19:30] VITALS: BP 142/79; PULSE 77; O2SAT 91
[2024-11-02 19:55] LABS: HIV Combo NEGATIVE (Negative)
[2024-11-02] MEDS: ASPIRIN EC 81MG TABLET 81 MG PO (20:43)
--- NOTE | 2024-11-02 21:00 | PC.NURSE ---
Pt failed dysphagia screen Plavix held due to this Pt given chewable ASA Pt assisted to bedside commode.
[2024-11-02 21:42] VITALS: BP 183/87; PULSE 71; RESP 17; TEMP 36.6; O2SAT 95
== END 2024-11-02 22:01 | disposition critical access hospital (66) ==
PROVIDERS: Emergency Provider Emergency Medicine; PCP Nurse Practitioner Family
DX: I63.9 Cerebral infarction, unspecified (principal); R20.2 Paresthesia of skin
CPT/HCPCS: 70450; 70496; 70498; 80053; 80061; 80320; 84484; 85025; 85610; 85730; 87389; 93005; 99285; G0480; Q9967